=== PATIENT | female | born 1960 | race American Indian/Alaskan Native ===

== ENCOUNTER 2016-07-19 08:06 | Inpatient (IN) | payer MEDICAID, OTHER ==
[2016-07-19 08:36] LABS: ADD MANUAL DIFF? NO
[2016-07-19 08:51] LABS: ALKALINE PHOSPHATASE 147 U/L (38-133); ALT/SGPT 139 U/L (7-56); AST/SGOT 386 U/L (15-39); BILIRUBIN,TOTAL 1.2 mg/dL (0.2-1.3); BLOOD UREA NITROGEN 13 mg/dL (7-21); CALCIUM 9.4 mg/dL (8.4-10.5); CARBON DIOXIDE 29 mmol/L (21-33); CHLORIDE 99 mmol/L (98-107); GFR AFRICAN-AMERICAN > 60; GLUCOSE,RANDOM 101 mg/dL (70-110); MAGNESIUM 1.9 mg/dL (1.7-2.2); POTASSIUM 3.4 mmol/L (3.6-5.0); SODIUM 134 mmol/L (132-148); TOTAL PROTEIN 7.3 g/dL (5.8-8.3)
[2016-07-19 08:52] LABS: INR 0.97 (0.93-1.08); PARTIAL THROMBOPLASTIN TIME 28.1 Seconds (23.7-30.8)
[2016-07-19 08:56] LABS: BASO # 0.01 K/mm3 (0.0-2.0); BASO % 0.1 % (0.0-3.0); EOS % 0.2 % (1.5-5.0); GRAN # 7.71 (1.4-6.5); GRAN % 67.9 % (50.0-68.0); HEMATOCRIT 28.9 % (36.0-48.0); LYMPH # 2.6 (1.2-3.4); LYMPH % 22.7 % (22.0-35.0); MEAN CELL VOLUME 69.3 fL (80.0-105.0); MEAN CORPUSCULAR HEMOGLOBIN 22.3 pg (25.0-35.0); MEAN CORPUSCULAR HGB CONC 32.2 g/dl (31.0-37.0); MEAN PLATELET VOLUME 9.4 fl (7.0-11.0); MONO % 9.1 % (1.0-6.0); PLATELET COUNT 276 10^3/uL (120.0-450.0); RED CELL DISTRIBUTION WIDTH 18.2 % (11.5-14.5); WHITE BLOOD COUNT 11.4 10^3/ul (4.5-11.0)
--- NOTE | 2016-07-19 09:28 | ED PDOC ---
Arrival/HPI - General Chief Complaint: Chest Pain Time Seen by Provider: 07/19/16 08:17 Historian: Patient, Spouse, EMS - Critical Care Critical Care Minutes: 30 minutes - History of Present Illness Narrative History of Present Illness (Text): 07/19/16 08:07 Penelope Beltran is a 55 year old female who presents to the emergency department with a reported STEMI. Patient yesterday at 2AM [place] the cruise ship began to complain of chest pain and diarrhea. EKG reportedly showed a STEMI. Patient was treated medically and was given Aspirin, Plavix, Lovenox, Morphine and arrived to the ED with NTG drip. Patient in the ED is now pain free and denies any chest pain. PMD: None Time/Duration: Other (2AM Wednesday) Symptom Onset: Sudden Symptom Course: Unchanged Activities at Onset: Light Context: Other (Cruise) Past Medical History - Provider Review Nursing Documentation Reviewed: Yes - Travel History If Yes, travel location?: [place] - Reproductive Menopause: Yes - Cardiac Hx Cardiac Disorders: Yes Hx Hypertension: Yes - Pulmonary Hx Respiratory Disorders: No - Neurological Hx Neurological Disorder: No - HEENT Hx HEENT Disorder: No - Renal Hx Renal Disorder: No - Endocrine/Metabolic Hx Endocrine Disorders: No - Hematological/Oncological Hx Blood Disorders: No - Integumentary Hx Dermatological Disorder: No - Musculoskeletal/Rheumatological Hx Musculoskeletal Disorders: Yes Hx Arthritis: Yes Hx Back Pain: Yes - Psychiatric Hx Substance Use: No - Surgical History Hx Cholecystectomy: Yes Other/Comment: carpal tunnel - Anesthesia Hx Anesthesia: Yes Hx Anesthesia Reactions: No Hx Malignant Hyperthermia: No Family/Social History - Physician Review Nursing Documentation Reviewed: Yes Family/Social History: No Known Family HX Smoking Status: Never Smoked Hx Alcohol Use: Yes Frequency of alcohol use: Socially Hx Substance Use: No Allergies/Home Meds Allergies/Adverse Reactions: Allergies amoxicillin Allergy (Verified 07/19/16 08:18) RASH atorvastatin [From Lipitor] Allergy (Verified 07/19/16 08:18) RASH shellfish derived Allergy (Verified 07/19/16 08:18) ANGIOEDEMA simvastatin [From Zocor] Allergy (Verified 07/19/16 08:18) RASH sulfamethoxazole [From Bactrim] Allergy (Verified 07/19/16 08:18) RASH trimethoprim [From Bactrim] Allergy (Verified 07/19/16 08:18) RASH Home Medications: Home Meds Medication Instructions Recorded Confirmed Aspirin [Lo-Dose Aspirin EC] 81 mg PO DAILY 07/19/16 07/19/16 Enoxaparin [Lovenox] 100 mg SQ DAILY 07/19/16 07/19/16 Metoprolol Tartrate [Lopressor] 50 mg PO DAILY 07/19/16 07/19/16 Pantoprazole [Protonix Inj] 40 mg IV DAILY 07/19/16 07/19/16 Simvastatin 40 mg PO DIN 07/19/16 07/19/16 Review of Systems - Physician Review All systems were reviewed & negative as marked: Yes - Review of Systems Constitutional: Normal. absent: Fevers Eyes: Normal ENT: Normal Respiratory: Normal. absent: SOB, Cough Cardiovascular: Chest Pain Gastrointestinal: Diarrhea. absent: Abdominal Pain, Nausea, Vomiting Genitourinary Female: Normal. absent: Dysuria, Frequency, Hematuria Musculoskeletal: Normal. absent: Back Pain, Neck Pain Skin: Normal Neurological: Normal. absent: Headache, Dizziness Endocrine: Normal Hemo/Lymphatic: Normal Psychiatric: Normal Physical Exam Vital Signs Reviewed: Yes Vital Signs Temp Pulse Resp BP Pulse Ox 07/19/16 10:09 99.9 F H 69 15 113/73 97 07/19/16 08:36 70 16 124/72 98 Temperature: Afebrile Blood Pressure: Normal Pulse: Regular Respiratory Rate: Normal Appearance: Positive for: Well-Appearing, Non-Toxic, Comfortable Pain Distress: None Mental Status: Positive for: Alert and Oriented X 3 - Systems Exam Head: Present: Atraumatic, Normocephalic Pupils: Present: PERRL Extroacular Muscles: Present: EOMI Conjunctiva: Present: Normal Mouth: Present: Moist Mucous Membranes Neck: Present: Normal Range of Motion Respiratory/Chest: Present: Clear to Auscultation, Good Air Exchange. No: Respiratory Distress, Accessory Muscle Use Cardiovascular: Present: Regular Rate and Rhythm, Normal S1, S2. No: Murmurs Abdomen: Present: Normal Bowel Sounds. No: Tenderness, Distention, Peritoneal Signs Back: Present: Normal Inspection Upper Extremity: Present: Normal Inspection. No: Cyanosis, Edema Lower Extremity: Present: Normal Inspection. No: Edema Neurological: Present: GCS=15, CN II-XII Intact, Speech Normal Skin: Present: Warm, Dry, Normal Color. No: Rashes Psychiatric: Present: Alert, Oriented x 3, Normal Insight, Normal Concentration Medical Decision Making ED Course and Treatment: 07/19/16 08:07 Impression: 55 year old female with reported STEMI. Patient complained of chest pain and diarrhea yesterday. Differential Diagnosis include but are not limited to: STEMI Plan: -- Chest X-ray -- EKG -- Labs, Urinalysis, cardiac enzymes -- Reassess and disposition Progress Notes: EKG taken on the Cruise @ 2:20: Ordered, reviewed, and independently interpreted the EKG. Rate : 86 BPM Rhythm : NSR Interpretation : ST elevations in II, III aVF, reciprocal ST depression in I aVL V1 & V2. EKG in the ED: Ordered, reviewed, and independently interpreted the EKG. Rate : 71 BPM Rhythm : NSR Interpretation : LAD, mild ST elevations noted in leads 3 Comparison : Compared to EKG taken on the cruise 07/19/16 08:[address] Brewer. States he will CATH the patient unless there are any acute changes. 07/19/16 09:26 Troponin 38. Will call Dr. Brewer to notify him of this. 07/19/16 09:[address] Chandra, the production pattern maker, who states he will come down and see the patient in the emergency department. 07/19/16 09:37 Case discussed with Bobbi, who states he will come down and see the patient in the emergency department. 07/19/16 09:38 Dr. Grider notified of Troponin levels of 38. States that he will still CATH patient tomorrow. Re-evaluation Time: 10:20 Reassessment Condition: Re-examined - Critical Care Critical Care Minutes: 30 minutes - Lab Interpretations Lab Results: 07/19/16 08:36 07/19/16 08:36 Lab Results 07/19/16 08:36: Sodium 134, Potassium 3.4 L, Chloride 99, Carbon Dioxide 29, Anion Gap 9 L, BUN 13, Creatinine 0.8, Est GFR ( Amer) > 60, Est GFR (Non -Af Amer) > 60, Random Glucose 101, Calcium 9.4, Magnesium 1.9, Total Bilirubin 1.2, AST 386 H, ALT 139 H, Alkaline Phosphatase 147 H, Lactate Dehydrogenase 1891 H, Total Creatine Kinase 2439 H, CK-MB (CK-2) 74.2 H, CK-MB (CK-2) % 3.0, Troponin I 38.20 H*, NT-Pro-B Natriuret Pep 1080 H, Total Protein 7.3, Albumin 3.7, Globulin 3.6, Albumin/Globulin Ratio 1.0 L 07/19/16 08:36: PT 10.5, INR 0.97, APTT 28.1 07/19/16 08:36: WBC 11.4 H, RBC 4.17, Hgb 9.3 L, Hct 28.9 L, MCV 69.3 L, MCH 22.3 L, MCHC 32.2, RDW 18.2 H, Plt Count 276, MPV 9.4, Gran % 67.9, Lymph % ( Auto) 22.7, [place] % (Auto) 9.1 H, Eos % (Auto) 0.2 L, Baso % (Auto) 0.1, Gran # 7.71 H, Lymph # 2.6, [place] # 1.0 H, Eos # 0.0, Baso # 0.01 I have reviewed the lab results: Yes - RAD Interpretation Radiology Orders: 07/19/16 08:19 CHEST PORTABLE [RAD] Stat Chief Of Staff: Radiologist - Medication Orders Current Medication Orders: Aspirin (Ecotrin) 81 mg PO DAILY [facility] Heparin Sodium/Sodium Chloride (Heparin 54840 Units/250ml 1/2 Normal Saline) 25 ,000 units in 250 mls @ 12.737 mls/hr IV .[id number] ANDREY; 12 UNITS/KG/HR PRN Reason: Protocol Last Admin: 07/19/16 12:13 Dose: 12 units/kg/hr, 12.737 mls/hr Nitroglycerin/Dextrose (Nitroglycerin 50 Mg/250 Ml D5w) 50 mg in 250 mls @ 1.5 mls/hr IV .Q24H PRN; Protocol; 5 MCG/MIN PRN Reason: Systolic Blood Pressure Metoprolol Tartrate (Lopressor) 50 mg PO DAILY [facility] Pantoprazole Sodium (Protonix Inj) 40 mg IV DAILY [facility] Discontinued Medications Heparin Sodium (Porcine) (Heparin) 7,400 units 70 units/kg (7400 units) IV ONCE ONE PRN Reason: Protocol Stop: 07/19/16 12:01 Last Admin: 07/19/16 12:19 Dose: 7,400 units Nitroglycerin/Dextrose (Nitroglycerin 50 Mg/250 Ml D5w) 50 mg in 250 mls @ 1.5 mls/hr IV .Q24H PRN; Protocol; 5 MCG/MIN PRN Reason: Systolic Blood Pressure Last Admin: 07/19/16 10:27 Dose: 1.5 mls/hr Potassium Chloride (Potassium Chloride 10 Meq/100 Ml) 10 meq in 100 mls @ 100 mls/hr IVPB ONCE ONE Stop: 07/19/16 12:54 Last Admin: 07/19/16 13:25 Dose: 100 mls/hr - Scribe Statement The provider has reviewed the documentation as recorded by the Angela Ndiaye Provider Attestation: All medical record entries made by the Angela were at my direction and personally dictated by me. I have reviewed the chart and agree that the record accurately reflects my personal performance of the history, physical exam, medical decision making, and the department course for this patient. I have also personally directed, reviewed, and agree with the discharge instructions and disposition. Disposition/Present on Arrival - Present on Arrival Any Indicators Present on Arrival: No History of DVT/PE: No History of Uncontrolled Diabetes: No Urinary Catheter: No History of Decub. Ulcer: No History Surgical Site Infection Following: None - Disposition Have Diagnosis and Disposition been Completed?: Yes Diagnosis: STEMI (ST elevation myocardial infarction) Disposition: HOSPITALIZED Disposition Time: 10:20 Condition: CRITICAL
[2016-07-19] MEDS ORDERED: Nitroglycerin 50mg in D5W 50 MG/250 ML BOTTLE IV PRN ×2 (10:08→15:19)
--- NOTE | 2016-07-19 10:52 | RAD ---
HISTORY: chest pain COMPARISON: No prior. FINDINGS: LUNGS: No active pulmonary disease. PLEURA: No significant pleural effusion identified, no pneumothorax apparent. CARDIOVASCULAR: Normal. OSSEOUS STRUCTURES: No significant abnormalities. VISUALIZED UPPER ABDOMEN: Normal. OTHER FINDINGS: None. IMPRESSION: No active disease.
[2016-07-19] MEDS ORDERED: Heparin25000 units/250ml 1/2NS 25,000 UNITS/250 ML BAG IV SCH ×2 (11:30→12:00)
[2016-07-19 11:39] LABS: PH,URINE 7.5 (4.7-8.0); URINE APPEARANCE CLEAR (CLEAR); URINE BILIRUBIN NEGATIVE (NEGATIVE); URINE BLOOD TRACE-INTACT (NEGATIVE); URINE COLOR YELLOW (YELLOW); URINE GLUCOSE (UA) NEGATIVE (NEGATIVE); URINE KETONE NEGATIVE (NEGATIVE); URINE LEUKOCYTE ESTERASE NEGATIVE Leu/uL (NEGATIVE); URINE PROTEIN NEGATIVE mg/dL (<30 mg/dL); URINE UROBILINOGEN 0.2 E.U./dL (<1 E.U./dL)
[2016-07-19 11:56] LABS: URINE BACTERIA FEW (NEG); URINE RBC 0 - 2 /hpf (0-2); URINE WBC 0 - 2 /hpf (0-6)
[2016-07-19 13:18] VITALS: BMI 40.1
--- NOTE | 2016-07-19 14:53 | CARD ---
APPROVED REPORT EKG Measurement Heart [id number] <Conclusion> Sinus rhythm with occasional premature ventricular complexes Minimal voltage criteria for LVH, may be normal variant Inferior infarct, possibly recent Anterior infarct, age undetermined Abnormal ECG
--- NOTE | 2016-07-19 16:06 | HP ---
I saw her in the Emergency Room this morning. She came off a cruise ship. She is a 55-year-old female who was having a STEMI, an TX, on a cruise ship with severe chest pain, who was given aspirin, Plavix, Lovenox, morphine, nitroglycerin. She ended up in our ER pain free. No chest pain, but still not feeling great. She was going to [facility]. PAST MEDICAL HISTORY: She has a history of hypertension, arthritis, back pains cholecystectomy. PAST SURGICAL HISTORY: Carpal tunnel syndrome. FAMILY HISTORY: Hypertension in the family. SOCIAL HISTORY: She never smoked, socially alcohol, no substance abuse. ALLERGIES: SHE HAS ALLERGIES TO PENICILLIN, LIPITOR, ZOCOR, BACTRIM. MEDICATIONS: She takes aspirin, Lovenox, Lopressor, Protonix and she is on simvastatin from the ship. I am not sure why she was taking SIMVASTATIN, SHE IS ALLERGIC TO IT. That is what she came in on from the cruise ship. I will stop simvastatin. I discussed with the pharmacy already. REVIEW OF SYSTEMS: No changes in vision, no changes in hearing. No sore throat. No neck pain. No dizziness, no headaches, no numbness. There is chest pain and pressure, a little short of breath. There was some diarrhea, but no abdominal pain, no nausea, vomiting. No problems urinating. There was back pain that is chronic. There was chest pain from the heart that has now subsided. Skin for the most part is intact, no issues. No headache, no dizziness, no depression or anxiety. She understands what is going on. PHYSICAL EXAMINATION: VITAL SIGNS: She has a 99.9 temp, 69 pulse, respiratory rate, 133/73 blood pressure, 97% O2 sat on room air. GENERAL: Well appearing, nontoxic, comfortable at this time, pleasant, alert and oriented x 3. HEENT: Head is atraumatic, normocephalic. Extraocular muscles are intact. Pupils equally reactive to light and accommodation. Throat is moist, no erythema. NECK: Supple, no JVD. HEART: Regular rate. Normal S1, S2. LUNGS: Decreased breath sounds, but clear to auscultation bilaterally, fair inspiration. ABDOMEN: Soft, morbidly obese, nontender, positive bowel sounds. No guarding, no rebound, no CVA tenderness. EXTREMITIES: Have no edema bilaterally. She can move all 4 extremities. NEUROLOGIC: GCS is 15. Cranial nerves II-XII grossly intact. Normal speech. Alert and oriented x 3. SKIN: Warm and dry. No redness, no skin breakdown. LYMPHATIC: Thyroid midline. No palpable appreciative lymphadenopathy. She had multiple tests while she was here in the Emergency Room. She has a 134 sodium, potassium 3.4. I will replace the potassium. BUN 13, creatinine 0.8, GFR is greater than 60, sugar is 101, calcium is 9.4, magnesium 1.9, total bili is 1.2, her AST is 386, ALT is 139, alkaline phosphatase is 147. Lactate dehydrogenase is 1891. Total creatine kinase is 2439. CK-MB, CK 2 is 74.2. Troponin is 38.2. BNP is 1080. Total protein 7.2, albumin is 3.7. I will call in GI for the elevated liver enzymes and cardiology for the elevated troponins. INR is 0.97. White count 7.4. We will keep an eye on that. She might need antibiotics if it goes higher. I will check it tomorrow. Hemoglobin is 9.3, a little bit anemic, hematocrit 28.9, platelets are 276. She is here from the cruise ship in our Emergency Room. She had a chest x-ray, showed no acute disease. I called in cardiology. She might need to have a cardiac catheterization. She will have GI for the elevated liver enzymes. I will follow her numbers, see how she does and she is acutely ill and going to the intensive care unit. She understands everything we are going to do. Cameron Martines DO cc: [id number] TT: 07/19/2016 16:05:26 en MTDD
[2016-07-19] MEDS ORDERED: Non Formulary Medication (Simvastatin [Simvastatin] 40 MG) PO SCH (17:00)
[2016-07-19 17:13] LABS: ALKALINE PHOSPHATASE 156 U/L (38-133); ALT/SGPT 140 U/L (7-56); AST/SGOT 331 U/L (15-39); BILIRUBIN,TOTAL 1.3 mg/dL (0.2-1.3); BLOOD UREA NITROGEN 13 mg/dL (7-21); CALCIUM 9.9 mg/dL (8.4-10.5); CARBON DIOXIDE 31 mmol/L (21-33); CHLORIDE 100 mmol/L (98-107); GFR AFRICAN-AMERICAN > 60; GLUCOSE,RANDOM 93 mg/dL (70-110); POTASSIUM 3.4 mmol/L (3.6-5.0); SODIUM 138 mmol/L (132-148); TOTAL PROTEIN 7.8 g/dL (5.8-8.3)
--- NOTE | 2016-07-19 18:11 | CON ---
DATE: 07/19/2016 REQUESTING PHYSICIAN: Dr. Martines. CHIEF COMPLAINT: The patient presents with chest pain/STEMI. HISTORY OF PRESENT ILLNESS: The patient is a 55-year-old obese -Romanian female with a histor y of hypertension and hyperlipidemia that was on a cruise ship and approximately 2 days ago developed crushing chest pain that radiated to her left shoulder. The patient presented to the [facility] and she was started on aspirin and a nitro drip as well as Plavix, Lovenox and morphine. She presented t o the ER and stated that her chest pain was pretty much resolved with the IV medication and that init ially she did have some diarrhea and she had episodes of heavy sweating, but that has since resolved. No fever, chills. No present nausea, vomiting. No present diarrhea or abdominal pain. No cough o r congestion and no shortness of breath. PAST MEDICAL HISTORY: As above. ALLERGIES: AMOXICILLIN, LIPITOR, SHELLFISH, ZOCOR, BACTRIM. MEDICATIONS: Can be evaluated as per the nurse's intake form. SOCIAL HISTORY: She stopped smoking about 20 years ago. No EtOH abuse. No drug abuse. FAMILY HISTORY: Noncontributory. REVIEW OF SYSTEMS: CONSTITUTIONAL: All negative. HEENT: All negative. RESPIRATORY: All negative. CARDIOVASCULAR: The patient presented with chest pain. GASTROINTESTINAL: She had an episode of diarrhea. GENITOURINARY: All negative. MUSCULOSKELETAL: All negative. NEUROPSYCHIATRIC: All negative. INTEGRITY: All negative. ENDOCRINE: All negative. HEMATOLOGIC: All negative. IMMUNOLOGIC: All negative. PHYSICAL EXAMINATION: VITAL SIGNS: Note that the patient is afebrile. Pulse is 75, respirations are 16 and BP is 124/72. O2 saturation on room air is 98%. HEAD: Atraumatic, normocephalic. EYES: Reactive to light. EARS, NOSE AND THROAT: Seem to be within normal limits. NECK: Supple, no JVD, no thyroid enlargement, no lymph nodes. HEART: Has a regular rate and rhythm. Normal S1, S2. LUNGS: Reveal good breath sounds bilaterally. ABDOMEN: Soft, nontender, normal bowel sounds, but mildly obese. GENITALIA AND RECTAL: Deferred. MUSCULOSKELETAL: No joint deformities. EXTREMITIES: Reveal no edema. NEUROLOGIC: She seemed to be grossly intact. IMAGING: As far as her chest x-ray, it reveals no active disease. LABORATORY DATA: Shows a white count of 11.4, hemoglobin of 9.3, hematocrit 28.9 and her platelets a re 276. The patient's glucose is 101. Sodium is 134, potassium 3.4, chloride 99, CO2 of 29 with a B UN of 13, creatinine of 0.8. The patient's BNP is 1080, troponin is 38.2 and her LDH is 1891, as wel l as total creatinine kinase is 2439. CK-MB fraction is elevated at 74.2. IMPRESSION: This patient has a ST-segment myocardial infarction with significant increased troponin. She has an increased BNP so there may be a component of congestive failure as well, even though grace st x-ray does not show congestion. The patient has anemia, obesity, hypertension and hyperlipidemia. She did present with chest pain. PLAN: We will continue with O2 via nasal cannula. She has been admitted to the intensive care unit for close observation. The patient medications at this time are a nitro drip, she will be continued on aspirin and Plavix. Cardiology has been consulted and she is scheduled for cardiac cath in the [facility]. We will continue to monitor closely and treat aggressively along with the other consultants a nd the primary care doctor. Lucas Matamoros MD cc: [id number] TT: 07/19/2016 18:11:06 Confirmation # [id number] Dictation # [id number]
--- NOTE | 2016-07-19 22:40 | CP.CCUPN ---
CCU Subjective - Physician Review Subjective (Free Text): 07/19/16 22:36 Patient is a 55 yo F who [place] cruise [place] with 2 day history of crushing chest pain. Found to have ST elevations on EKG performed on ship with elevated trop level (level unknown, not provided in paperwork from ship). Sent to [facility] ED with Aspirin, Plavix, Lovenox, Morphine and NTG drip. On arrival to ED, 12 lead EKG was negative for STEMI, but EKG from ship provided by shows clear ST elevations, and Trop in the ED was 38. Cardio notified, started heparin drip, continued nitro drip, and states planning for Cath tomorrow. Patient was then admitted to the ICU for close monitoring pending Cardiac cath tomorrow AM. CCU Objective - Vital Signs / Intake & Output Vital Signs (Last 4 hours): Vital Signs Temp 07/19/16 20:00 98.9 F Intake and Output (Last 8hrs): Intake & Output 07/19/16 07/19/16 07/19/16 06:59 14:59 22:59 Intake Total 818 Output Total 2050 Balance -1232 Weight 106.141 kg Intake: IV 258 Left Antecubital 36 Right Antecubital 172 Oral 560 Output: Urine 1800 Urine, Voided 1800 Urine/Stool Mix 250 Other: Voiding Method Bedpan # Voids Urine, Voided 4 # Bowel Movements 1 - Physical Exam Head: Positive for: Atraumatic, Normocephalic Pupils: Positive for: PERRL Extroacular Muscles: Positive for: EOMI Conjunctiva: Positive for: Normal Mouth: Positive for: Moist Mucous Membranes Neck: Positive for: Normal Range of Motion Respiratory/Chest: Positive for: Clear to Auscultation, Good Air Exchange. Negative for: Respiratory Distress, Accessory Muscle Use Cardiovascular: Positive for: Regular Rate and Rhythm, Normal S1, S2. Negative for: Murmurs Abdomen: Positive for: Normal Bowel Sounds. Negative for: Tenderness, Distention, Peritoneal Signs Back: Positive for: Normal Inspection Upper Extremity: Positive for: Normal Inspection. Negative for: Cyanosis, Edema Lower Extremity: Positive for: Normal Inspection. Negative for: Edema Neurological: Positive for: GCS=15, CN II-XII Intact, Speech Normal Skin: Positive for: Warm, Dry, Normal Color. Negative for: Rashes Psychiatric: Positive for: Alert, Oriented x 3, Normal Insight, Normal Concentration - Medications Active Medications: Active Medications Generic Name Dose Route Start Last Admin Trade Name Freq PRN Reason Stop Dose Admin Aspirin 81 mg 07/20/16 10:00 Ecotrin PO DAILY [facility] Heparin Sodium/Sodium Chloride 25,000 units in 250 mls @ 12.737 mls/hr 12:00 07/19/16 17:48 Heparin 17973 Units/250ml 1/2 Normal Saline IV 10 units/kg/hr .[id number] ANDREY 10.614 mls/hr Protocol Titration 12 UNITS/KG/HR Nitroglycerin/Dextrose 50 mg in 250 mls @ 1.5 mls/hr 07/19/16 15:19 07/19/16 16:01 Nitroglycerin 50 Mg/250 Ml D5w IV 20 mcg/min .Q24H PRN 6 mls/hr Systolic Blood Pressure Administration Protocol 5 MCG/MIN Metoprolol Tartrate 50 mg 07/20/16 10:00 Lopressor PO DAILY [facility] Pantoprazole Sodium 40 mg 07/20/16 10:00 Protonix Inj IV DAILY [facility] - Patient Studies Lab Studies: Lab Studies 07/19/16 07/19/16 07/19/16 Range/Units 16:50 16:50 11:36 APTT 86.0 H* (23.7-30.8) Seconds Sodium 138 (132-148) mmol/L Potassium 3.4 L (3.6-5.0) mmol/L Chloride 100 (98-107) mmol/L Carbon Dioxide 31 (21-33) mmol/L Anion Gap 10 (10-20) BUN 13 (7-21) mg/dL Creatinine 0.9 (0.5-1.4) mg/dL Est GFR ( Amer) > 60 Est GFR (Non-Af Amer) > 60 Random Glucose 93 (70-110) mg/dL Calcium 9.9 (8.4-10.5) mg/dL Total Bilirubin 1.3 (0.2-1.3) mg/dL AST 331 H (15-39) U/L ALT 140 H (7-56) U/L Alkaline Phosphatase 156 H (38-133) U/L Troponin I 28.70 H* D ng/mL Total Protein 7.8 (5.8-8.3) g/dL Albumin 3.9 (3.0-4.8) g/dL Globulin 3.9 gm/dL Albumin/Globulin Ratio 1.0 L (1.1-1.8) TSH 3rd Generation (0.46-4.68) mIU/mL Urine Color Yellow (YELLOW) Urine Appearance Clear (CLEAR) Urine pH 7.5 (4.7-8.0) Ur Specific [place] 1.015 (1.005-1.035) Urine Protein Negative (<30 mg/dL) mg/dL Urine Glucose (UA) Negative (NEGATIVE) mg/dL Urine Ketones Negative (NEGATIVE) mg/dL Urine Blood Trace-intact H (NEGATIVE) Urine Nitrate Negative (NEGATIVE) Urine Bilirubin Negative (NEGATIVE) Urine Urobilinogen 0.2 (<1 E.U./dL) E.U./dL Ur Leukocyte Esterase Negative (NEGATIVE) Edvin/uL Urine RBC 0 - 2 (0-2) /hpf Urine WBC 0 - 2 (0-6) /hpf Ur Epithelial Cells 1 - 3 (0-5) /hpf Urine Bacteria Few (NEG) 07/19/16 Range/Units 11:15 APTT (23.7-30.8) Seconds Sodium (132-148) mmol/L Potassium (3.6-5.0) mmol/L Chloride (98-107) mmol/L Carbon Dioxide (21-33) mmol/L Anion Gap (10-20) BUN (7-21) mg/dL Creatinine (0.5-1.4) mg/dL Est GFR ( Amer) Est GFR (Non-Af Amer) Random Glucose (70-110) mg/dL Calcium (8.4-10.5) mg/dL Total Bilirubin (0.2-1.3) mg/dL AST (15-39) U/L ALT (7-56) U/L Alkaline Phosphatase (38-133) U/L Troponin I ng/mL Total Protein (5.8-8.3) g/dL Albumin (3.0-4.8) g/dL Globulin gm/dL Albumin/Globulin Ratio (1.1-1.8) TSH 3rd Generation 2.11 (0.46-4.68) mIU/mL Urine Color (YELLOW) Urine Appearance (CLEAR) Urine pH (4.7-8.0) Ur Specific [place] (1.005-1.035) Urine Protein (<30 mg/dL) mg/dL Urine Glucose (UA) (NEGATIVE) mg/dL Urine Ketones (NEGATIVE) mg/dL Urine Blood (NEGATIVE) Urine Nitrate (NEGATIVE) Urine Bilirubin (NEGATIVE) Urine Urobilinogen (<1 E.U./dL) E.U./dL Ur Leukocyte Esterase (NEGATIVE) Edvin/uL Urine RBC (0-2) /hpf Urine WBC (0-6) /hpf Ur Epithelial Cells (0-5) /hpf Urine Bacteria (NEG) Laboratory Results - last 24 hr 07/19/16 07/19/16 07/19/16 11:15 11:36 16:50 APTT Sodium 138 Potassium 3.4 L Chloride 100 Carbon Dioxide 31 Anion Gap 10 BUN 13 Creatinine 0.9 Est GFR ( Amer) > 60 Est GFR (Non-Af Amer) > 60 Random Glucose 93 Calcium 9.9 Total Bilirubin 1.3 AST 331 H ALT 140 H Alkaline Phosphatase 156 H Troponin I 28.70 H* D Total Protein 7.8 Albumin 3.9 Globulin 3.9 Albumin/Globulin Ratio 1.0 L TSH 3rd Generation 2.11 Urine Color Yellow Urine Appearance Clear Urine pH 7.5 Ur Specific [place] 1.015 Urine Protein Negative Urine Glucose (UA) Negative Urine Ketones Negative Urine Blood Trace-intact H Urine Nitrate Negative Urine Bilirubin Negative Urine Urobilinogen 0.2 Ur Leukocyte Esterase Negative Urine RBC 0 - 2 Urine WBC 0 - 2 Ur Epithelial Cells 1 - 3 Urine Bacteria Few 07/19/16 16:50 APTT 86.0 H* Sodium Potassium Chloride Carbon Dioxide Anion Gap BUN Creatinine Est GFR ( Amer) Est GFR (Non-Af Amer) Random Glucose Calcium Total Bilirubin AST ALT Alkaline Phosphatase Troponin I Total Protein Albumin Globulin Albumin/Globulin Ratio TSH 3rd Generation Urine Color Urine Appearance Urine pH Ur Specific [place] Urine Protein Urine Glucose (UA) Urine Ketones Urine Blood Urine Nitrate Urine Bilirubin Urine Urobilinogen Ur Leukocyte Esterase Urine RBC Urine WBC Ur Epithelial Cells Urine Bacteria EKG/Cardiology Studies: Cardiology / EKG Studies 07/20/16 06:00 ELECTROCARDIOGRAM DAILY Comment: Reason For Exam: Elevated trop, possible STEMI, f/u Critical Care Progress Note - Nutrition Nutrition: Nutrition Category Date Time Status Heart Healthy Diet [DIET] Diets 07/19/16 Lunch Ordered Assessment/Plan - Assessment and Plan (Free Text) Assessment: This is a 55 yo AA F who presents from cruise ship with 2 day history of crushing chest pain, and was found to have ST elevations and elevated trops consistent with STEMI. Pending Cardiac cath in the AM. Admitted to the ICU for close monitoring prior to cath. Plan: Neuro: -awake and alert, follows commands appropriately -temp of 100.9 after admission to ICU, acetaminophen 650mg PO x1 given -maintain normothermia, but given setting of elevated LFTs, use tylenol with caution Pulm: -satting well on room air, no indication for supplemental O2 at this time -maintain SaO2 > 90% -aspiration precautions, head of bed to 30 degrees Cardio: -ST elevations on EKG from cruise ship, 12 lead EKG in ED negative for ST elevations -Trop 38.2 on admission, down to 28.7 on repeat, continue to trend -Cardio (Dr. Chan) consulted, appreciate all recs; pending cardiac cath tomorrow -Heparin drip, Nitro drip -Continue home ASA and lopressor -EKG in ED notable for sinus rhythm at 71 with occasional PVCs, no ST segment elevations; repeat EKG in AM -Hemodynamically stable, no need for pressors at this time, maintain MAP > 65 GI: -heart-healthy diet, NPO after midnight for possible cath -Protonix for GI ppx -elevated LFTs, may be secondary to suspected STEMI, avoid hepatotoxic drugs where feasible -GI (Dr. Valles) consulted, appreciate all recs Renal: -Cr 0.9, continue to monitor -monitor and replete all electrolytes as needed, K remains low so will replete further with 40 mEq PO and 2x10 mEq IV -avoid nephrotoxic drugs where feasible -maintain euvolemia and euglycemia (BG 140-180) Heme: -Hgb 9.3, continue to monitor -Heparin drip covers for DVT ID: -leukocytosis of 11.4, temp 100.9 x1, afebrile since -leukocytosis 2/2 stress rxn vs infectious process -blood and urine cultures pending -f/u repeat CBC, if leukocytosis persists or worsens, can consider starting abx Dispo: ICU for monitoring, pending cardiac cath in AM FEN: Heart-healthy, NPO after midnight for cardiac cath Access: Peripheral IV Consults: Cardio, GI Ppx: Protonix for GI, Heparin drip covers for DVT
[2016-07-19] MEDS ORDERED: Potassium Chloride 40 mEq/30 ml LIQ UD PO ONE (22:49)
[2016-07-20 05:41] LABS: ADD MANUAL DIFF? NO
[2016-07-20 05:55] LABS: INR 0.99 (0.93-1.08); PARTIAL THROMBOPLASTIN TIME 54.7 Seconds (23.7-30.8)
[2016-07-20 06:21] LABS: ALKALINE PHOSPHATASE 153 U/L (38-133); ALT/SGPT 125 U/L (7-56); AST/SGOT 230 U/L (15-39); BILIRUBIN,TOTAL 1.2 mg/dL (0.2-1.3); BLOOD UREA NITROGEN 11 mg/dL (7-21); CALCIUM 9.7 mg/dL (8.4-10.5); CARBON DIOXIDE 31 mmol/L (21-33); CHLORIDE 104 mmol/L (98-107); CHOLESTEROL 211 mg/dL (130-200); GFR AFRICAN-AMERICAN > 60; GLUCOSE,RANDOM 99 mg/dL (70-110); PHOSPHOROUS 2.6 mg/dL (2.5-4.5); POTASSIUM 3.9 mmol/L (3.6-5.0); SODIUM 141 mmol/L (132-148); TOTAL PROTEIN 7.5 g/dL (5.8-8.3)
[2016-07-20 06:29] LABS: HEMATOCRIT 30.8 % (36.0-48.0); MEAN CELL VOLUME 71.1 fL (80.0-105.0); MEAN CORPUSCULAR HEMOGLOBIN 22.2 pg (25.0-35.0); MEAN CORPUSCULAR HGB CONC 31.2 g/dl (31.0-37.0); WHITE BLOOD COUNT 13.8 10^3/ul (4.5-11.0)
[2016-07-20 06:30] LABS: BASO # 0.03 K/mm3 (0.0-2.0); BASO % 0.2 % (0.0-3.0); EOS # 0.1 (0.0-0.7); EOS % 0.4 % (1.5-5.0); GRAN # 8.25 (1.4-6.5); GRAN % 59.7 % (50.0-68.0); MEAN PLATELET VOLUME 10.1 fl (7.0-11.0); MONO # 1.5 (0.1-0.6); MONO % 10.7 % (1.0-6.0); PLATELET COUNT 292 10^3/uL (120.0-450.0); RED CELL DISTRIBUTION WIDTH 19.5 % (11.5-14.5)
[2016-07-20] MEDS ORDERED: Lidocaine 2% Inj (20ml) ONE (07:13)
[2016-07-20] MEDS ORDERED: Iohexol 350mgl/ml 50 ML ONE (07:14)
[2016-07-20] MEDS ORDERED: Iohexol 350 MG/100 ML VIAL ONE (07:14)
[2016-07-20] MEDS: DiphenhydrAMINE 50 mg/ml Inj ONE (07:21)
[2016-07-20] MEDS: Famotidine 20mg/50ml 20 MG/50 ML BAG IVPB ONE (07:21)
[2016-07-20] MEDS: Midazolam 2 MG/2 ML VIAL ONE (07:43)
[2016-07-20] MEDS: Nitroglycerin 50mg in D5W 50 MG/250 ML BOTTLE IV ONE (08:01)
[2016-07-20] MEDS ORDERED: Sodium Chloride 0.9% 1,000 ML IV SCH (08:30)
--- NOTE | 2016-07-20 09:09 | PN ---
DATE: 07/20/2016 I saw her in the vascular suite, getting ready for her catheterization with cardiology this morning. Mild chest discomfort - not as bad as when she came in, smiling, happy. No acute distress at this t diego. She understands the procedure, and knows she will be lying flat for 6 hours afterwards, and we will see if she does need a stent or not. She understands all this. She is on aspirin, Lopressor, Plavix, Protonix, IV fluids, and Zofran. PHYSICAL EXAMINATION: VITAL SIGNS: Temp 98.2, 81 pulse, 112/68 blood pressure. LABORATORY DATA: White count 13.8, 9.6 hemoglobin, 30.8 hematocrit with 292 platelets. The white co unt did go up. She has a 0.99 INR. Sodium 141, potassium 3.9. BUN is 11, creatinine 1. GFR is gre ater than 60. Sugar is 99. Calcium is 9.7. Total bili is 2.6. Magnesium is 2. Total bili is 1.3. AST is 230 - coming down. ALT is 125 - coming down. Alk phos 153 - coming down. Her troponin was 21.6 - coming down. It was as high as 38.2. BNP went up to 1480. We will see if cardiology wants to give her some Lasix and diuresed her. She is currently not on any Lasix right now. We might have to give her a dose. We will see what they say after the catheteriza tion. We will continue with aggressive treatment and care. She is being seen by cardiology and GI, and I am going to call in infectious disease for the elevated white count. It could be stress related, but that went up, as opposed to coming down. I am not yvette e. I do not know the source for infection. I want to get their opinion, and we will check her labs tomorrow. Hopefully, she will do very well, and we will see how she does after the cath. Cameron Martines DO cc: [id number] TT: 07/20/2016 09:08:40 Confirmation # [id number] Dictation # [id number] jn
--- NOTE | 2016-07-20 09:17 | CP.PCM.CON ---
History of Present Illness - History of Present Illness History of Present Illness: Asked by Dr. Martines for a GI consultation on this patient. 55 year old female with history of obesity, HTN, hyperlipidemia, chronic back pain who presents to hospital with sudden onset chest pain. She was on a cruise to [facility], day 6 when she began to develop crushing chest pain, was brought to hospital and found to have acute MS. GI called for evaluation of elevated LFTs. She is currently seen resting in bed comfortably and denies abdominal pain, nausea, vomiting, diarrhea, fever/chills, weight loss, jaundice, pruritis, excessive ETOH or tylenol use, or prior liver abnormalities. She had a colonoscopy 5 years ago in [place] which was normal as per patient. Social history: non-smoker, social ETOH use Family history: sister (colon cancer diagnosed age 50) Review of Systems - Review of Systems Review of Systems: - All other comprehensive 12 point review of systems performed, negative - Cardiovascular Cardiovascular: Chest Pain - Respiratory Respiratory: absent: Cough, Dyspnea, Hemoptysis, Dyspnea on Exertion, Wheezing, Snoring, Stridor, Pain on Inspiration, Chest Congestion, Excessive Mucous Production, Change in Mucous Color, Pain with Coughing, Other - Gastrointestinal Gastrointestinal: absent: Abdominal Pain, Belching, Bloating, Change in Bowel Habits, Change in Stool Character, Coffee Ground Emesis, Constipation, Cramping , Diarrhea, Dyspepsia, Dysphagia, Early Satiety, Excessive Flatus, Fecal Incontinence, Heartburn, Hematemesis, Hematochezia, Loose Stools, Melena, Nausea , Odynophagia, Temesmus, Vomiting, Other - Musculoskeletal Musculoskeletal: Back Pain - Neurological Neurological: absent: Abnormal Gait, Abnormal Hearing, Abnormal Movements, Abnormal Speech, Behavioral Changes, Burning Sensations, Confusion, Convulsions , Disequilibrium, Dizziness, Numbness, Focal Weakness, Frequent Falls, Headaches , Lack of Coordination, Loss of Vision, Memory Loss, Paresthesias, Radicular Pain, Restless Legs, Sensory Deficit, Syncope, Tingling, Tremor, Vertigo, Weakness, Other Visual Disturbances, Other Past Patient History - Past Social History Smoking Status: Never Smoked - CARDIAC Hx Cardiac Disorders: Yes Hx Hypertension: Yes - PULMONARY Hx Respiratory Disorders: No - NEUROLOGICAL Hx Neurological Disorder: No - HEENT Hx HEENT Problems: No - RENAL Hx Chronic Kidney Disease: No - ENDOCRINE/METABOLIC Hx Endocrine Disorders: No - HEMATOLOGICAL/ONCOLOGICAL Hx Blood Disorders: No - INTEGUMENTARY Hx Dermatological Problems: No - MUSCULOSKELETAL/RHEUMATOLOGICAL Hx Musculoskeletal Disorders: Yes Hx Arthritis: Yes Hx Back Pain: Yes - PSYCHIATRIC Hx Substance Use: No - SURGICAL HISTORY Hx Cholecystectomy: Yes Other/Comment: carpal tunnel - ANESTHESIA Hx Anesthesia: Yes Hx Anesthesia Reactions: No Hx Malignant Hyperthermia: No Meds Allergies/Adverse Reactions: Allergies Allergy/AdvReac Type Severity Reaction Status Date / Time amoxicillin Allergy RASH Verified 07/19/16 08:18 atorvastatin [From Lipitor] Allergy RASH Verified 07/19/16 08:18 shellfish derived Allergy ANGIOEDEMA Verified 07/19/16 08:18 simvastatin [From Zocor] Allergy RASH Verified 07/19/16 08:18 sulfamethoxazole Allergy RASH Verified 07/19/16 08:18 [From Bactrim] trimethoprim [From Bactrim] Allergy RASH Verified 07/19/16 08:18 - Medications Medications: Current Medications Aspirin (Ecotrin) 81 mg PO DAILY [facility] Last Admin: 07/20/16 06:41 Dose: 81 mg Clopidogrel Bisulfate (Plavix) 75 mg PO DAILY [facility] Sodium Chloride (Sodium Chloride 0.9%) 1,000 mls @ 100 mls/hr IV .Q10H [facility] Stop: 07/20/16 18:29 Metoprolol Tartrate (Lopressor) 50 mg PO Q12H [facility] Ondansetron HCl (Zofran Inj) 4 mg IVP Q6H PRN PRN Reason: Nausea/Vomiting Last Admin: 07/20/16 00:58 Dose: 4 mg Pantoprazole Sodium (Protonix Inj) 40 mg IV DAILY [facility] Physical Exam - Constitutional Appears: Non-toxic, No Acute Distress - Head Exam Head Exam: NORMAL INSPECTION - Eye Exam Eye Exam: EOMI, Normal appearance - ENT Exam ENT Exam: Mucous Membranes Moist - Respiratory Exam Respiratory Exam: Clear to Auscultation Bilateral - Cardiovascular Exam Cardiovascular Exam: REGULAR RHYTHM, +S1, +S2 - GI/Abdominal Exam GI & Abdominal Exam: Normal Bowel Sounds, Soft Additional comments: obese, non-tender to palpation in four quadrants no palpable hepato/splenomegaly - Extremities Exam Extremities exam: Positive for: normal inspection Additional comments: groin dressing intact, clean/dry - Neurological Exam Neurological exam: Alert, CN II-XII Intact, Oriented x3, Reflexes Normal - Psychiatric Exam Psychiatric exam: Normal Affect, Normal Mood - Skin Skin Exam: Dry, Intact, Normal Color, Warm Results - Vital Signs Recent Vital Signs: Last Vital Signs Temp 98.2 F 07/20/16 04:00 Pulse 70 07/20/16 08:59 Resp 18 07/20/16 08:59 BP 101/63 07/20/16 08:59 Pulse Ox 98 07/20/16 08:59 - Labs Result Diagrams: 07/20/16 05:15 07/20/16 05:15 Labs: Laboratory Results - last 24 hr 07/19/16 07/19/16 07/19/16 11:15 11:36 16:50 WBC RBC Hgb Hct MCV MCH MCHC RDW Plt Count MPV Gran % Lymph % (Auto) [place] % (Auto) Eos % (Auto) Baso % (Auto) Gran # Lymph # [place] # Eos # Baso # PT INR APTT Sodium 138 Potassium 3.4 L Chloride 100 Carbon Dioxide 31 Anion Gap 10 BUN 13 Creatinine 0.9 Est GFR ( Amer) > 60 Est GFR (Non-Af Amer) > 60 Random Glucose 93 Calcium 9.9 Phosphorus Magnesium Total Bilirubin 1.3 AST 331 H ALT 140 H Alkaline Phosphatase 156 H Troponin I 28.70 H* D NT-Pro-B Natriuret Pep Total Protein 7.8 Albumin 3.9 Globulin 3.9 Albumin/Globulin Ratio 1.0 L Triglycerides Cholesterol LDL Cholesterol Direct HDL Cholesterol TSH 3rd Generation 2.11 Urine Color Yellow Urine Appearance Clear Urine pH 7.5 Ur Specific [place] 1.015 Urine Protein Negative Urine Glucose (UA) Negative Urine Ketones Negative Urine Blood Trace-intact H Urine Nitrate Negative Urine Bilirubin Negative Urine Urobilinogen 0.2 Ur Leukocyte Esterase Negative Urine RBC 0 - 2 Urine WBC 0 - 2 Ur Epithelial Cells 1 - 3 Urine Bacteria Few 07/19/16 07/19/16 07/19/16 16:50 23:20 23:20 WBC RBC Hgb Hct MCV MCH MCHC RDW Plt Count MPV Gran % Lymph % (Auto) [place] % (Auto) Eos % (Auto) Baso % (Auto) Gran # Lymph # [place] # Eos # Baso # PT INR APTT 86.0 H* 65.4 H Sodium Potassium Chloride Carbon Dioxide Anion Gap BUN Creatinine Est GFR ( Amer) Est GFR (Non-Af Amer) Random Glucose Calcium Phosphorus Magnesium Total Bilirubin AST ALT Alkaline Phosphatase Troponin I 25.10 H* NT-Pro-B Natriuret Pep Total Protein Albumin Globulin Albumin/Globulin Ratio Triglycerides Cholesterol LDL Cholesterol Direct HDL Cholesterol TSH 3rd Generation Urine Color Urine Appearance Urine pH Ur Specific [place] Urine Protein Urine Glucose (UA) Urine Ketones Urine Blood Urine Nitrate Urine Bilirubin Urine Urobilinogen Ur Leukocyte Esterase Urine RBC Urine WBC Ur Epithelial Cells Urine Bacteria 07/20/16 07/20/16 07/20/16 05:15 05:15 05:15 WBC 13.8 H D RBC 4.33 Hgb 9.6 L Hct 30.8 L MCV 71.1 L MCH 22.2 L MCHC 31.2 RDW 19.5 H Plt Count 292 MPV 10.1 Gran % 59.7 Lymph % (Auto) 29.0 [place] % (Auto) 10.7 H Eos % (Auto) 0.4 L Baso % (Auto) 0.2 Gran # 8.25 H Lymph # 4.0 H [place] # 1.5 H Eos # 0.1 Baso # 0.03 PT 10.7 INR 0.99 APTT 54.7 H Sodium 141 Potassium 3.9 Chloride 104 Carbon Dioxide 31 Anion Gap 10 BUN 11 Creatinine 1.0 Est GFR ( Amer) > 60 Est GFR (Non-Af Amer) 57 Random Glucose 99 Calcium 9.7 Phosphorus 2.6 Magnesium 2.0 Total Bilirubin 1.2 AST 230 H ALT 125 H Alkaline Phosphatase 153 H Troponin I 21.60 H* NT-Pro-B Natriuret Pep 1480 H Total Protein 7.5 Albumin 3.8 Globulin 3.7 Albumin/Globulin Ratio 1.0 L Triglycerides 165 H Cholesterol 211 H LDL Cholesterol Direct 118 HDL Cholesterol 55 TSH 3rd Generation Urine Color Urine Appearance Urine pH Ur Specific [place] Urine Protein Urine Glucose (UA) Urine Ketones Urine Blood Urine Nitrate Urine Bilirubin Urine Urobilinogen Ur Leukocyte Esterase Urine RBC Urine WBC Ur Epithelial Cells Urine Bacteria Assessment & Plan - Assessment and Plan (Free Text) Assessment: HTN Arthritis, chronic back pain Obesity Acute MS, s/p cardiac cath with QUENTIN placement Transaminitis Microcytic anemia Plan: - Diet as tolerated - LFTs trending down, continue to monitor and avoid hepatotoxic therapy - Obtain abdominal US - Obtain viral hepatitis and autoimmune panels - Follow up cardiology recommendations s/p PCI - H/H stable, continue to monitor and obtain stool occult blood - Patient would benefit from elective outpatient colonoscopy given family history of colon cancer in 1st degree relative following resolution of acute cardiac events
[2016-07-20] MEDS: Morphine 2 mg/ml ISec IVP PRN (09:39)
--- NOTE | 2016-07-20 10:07 | CON ---
DATE: 07/20/2016 REQUESTING PHYSICIAN: Dr. Martines REASON FOR CONSULTATION: Acute myocardial infarction. HISTORY OF PRESENT ILLNESS: This is a 55-year-old woman with a history of hypertension and hyperlipi demia, who was on a cruise ship when she developed severe retrosternal chest discomfort early y morning. She went to the medical facility on the ship and was found to have evidence of an inferio r wall myocardial infarction with acute ST elevations. She was started on aspirin, Lovenox, metoprol ol. She was also reportedly given Plavix. She presented to the Emergency Room yesterday morning aft er disembarking. She had no chest pain upon arrival. An EKG showed evidence of Q-waves in the infer ior leads. She did have mild discomfort overnight. She has no prior cardiac history. She does have a history of hypertension and hyperlipidemia. She does not smoke. There is no family history of pr emature heart disease. PAST MEDICAL HISTORY: Notable for the problems mentioned above. She has had prior carpal tunnel yvette christiana as well as a cholecystectomy. She has chronic arthritis and chronic obesity. CURRENT MEDICATIONS: Include aspirin, IV heparin, metoprolol 50 mg daily, IV nitroglycerin, Protonix , and Zofran p.r.n. ALLERGIES: SHE HAS HAD A PRIOR REACTION APPARENTLY IN THE PAST TO AMOXICILLIN, ATORVASTATIN, SIMVAST ATIN AND BACTRIM. SOCIAL HISTORY: She does not smoke or drink. She is a resident of [place]. FAMILY HISTORY: Both parents were hypertensive, but there is no evidence of premature heart disease. REVIEW OF SYSTEMS: A 10-point is otherwise unremarkable. PHYSICAL EXAMINATION: GENERAL: She is an overweight, middle-aged woman. VITAL SIGNS: Her blood pressure is 112/70 with pulse of 80, in sinus, respirations are 16. She is a febrile. HEENT: Normocephalic, atraumatic. NECK: Supple, no JVD noted. CHEST: Clear to auscultation and percussion. HEART: PMI displaced laterally with no pathologic murmur or gallops noted. ABDOMEN: Soft, obese, nontender, normoactive bowel sounds. EXTREMITIES: No edema. SKIN: Warm and dry. PSYCHIATRIC: Normal mood and affect. NEUROLOGIC: Alert and oriented x 3. No gross motor or sensory deficits appreciable. DIAGNOSTIC DATA: Potassium is 3.9, BUN and creatinine are 11 and 1.0. Hemoglobin and hematocrit are 9.6 and 30.8 with an MCV of 71, platelet count is 292,000. Peak troponin was 38.2, repeat this morn ing is 21.6. Electrocardiogram reveals sinus rhythm with inferior wall myocardial infarction pattern and nonspecific ST-T abnormalities. Chest x-ray reveals normal cardiac silhouette with clear lung f ields. IMPRESSION: 1. Status post subacute inferior wall myocardial infarction with some post-infarct angina. 2. History of hypertension and hyperlipidemia. 3. Other problems include microcytic anemia. RECOMMENDATIONS: Given her presentation, a cardiac catheterization has been recommended. Further pl ans will be made based upon those results. Risks and benefits of the procedure have been discussed i n detail with her and she is agreeable to proceed. Stool guaiacs will be checked. Evaluation of her microcytic anemia should be planned. Risk factor control is advised. Thank you for this consultation. I will be happy to follow along through her hospital course. Jesu Chan MD cc: [id number] TT: 07/20/2016 10:06:55 Confirmation # [id number] Dictation # [id number] en
--- NOTE | 2016-07-20 10:16 | CARDCATH ---
PROCEDURE DATE: 07/20/2016 PROCEDURES: 1. Selective left and right coronary angiography. 2. Left ventriculography. 3. PCI of RCA with drug-eluting stents. 4. Right femoral arteriography. 5. Angio-Seal deployment. HISTORY OF PRESENT ILLNESS: This is a 55-year-old woman with a history of hypertension and hyperlipidemia, who suffered [place] myocardial [place] on [place] cruise [place] 48 [place] ago. She has had some post-infarct angina and catheterization was recommended. Her peak troponin was 35. INDICATION: Subacute myocardial infarction, post-infarct angina. FINDINGS: HEMODYNAMICS: The aortic pressure was 100/70 with a left ventricular pressure of 100/20. CORONARY ANATOMY: 1. The left main stem had a 20% ostial tapering. 2. Left anterior descending artery and its branches had mild diffuse disease and LAD was mildly calcified. 3. Left circumflex artery was of moderate size with no significant disease. 4. The right coronary artery was occluded proximally. The vessel appeared to be moderately calcified as well. Faint collaterals are seen from the left coronary system to the distal RCA. LEFT VENTRICULOGRAPHY: A hand injection was performed in the left ventricle revealing moderate inferior hypokinesis with an overall ejection fraction of 40% . There was no aortic valve gradient noted on catheter pullback. Mitral regurgitation was not assessed. CORONARY INTERVENTION: Given the above findings, attempted PCI of the RCA was then performed. Intravenous heparin 5000 units was administered and the ACT was greater than 220 seconds during the procedure. The lesion in the RCA was successfully crossed with the use of a [place] wire and initial inflations were performed with a 2.5 mm x 12 mm balloon. After recanalization of the vessel, there was evidence of multiple severe lesions throughout the proximal, mid and distal LAD. The distal lesion appeared to be of 80% severity, the mid portion had 90% lesions and the proximal lesion had been 100%. Given these findings, multiple inflations with the 2.5 mm balloon was performed in the distal, mid and proximal segments of the vessel. Following this, a 2.75 mm x 23 mm Xience drug-eluting stent was advanced into the distal vessel and inflated to 12 atmospheres. There was 0% residual stenosis at the site. Following this, a 3.0 mm x 33 mm Xience stent was deployed in the mid portion of the vessel. This was inflated to 12 atmospheres. Subsequently, a 3.0 mm x 28 mm Xience drug -eluting stent was advanced into the more proximal portion of the vessel and positioned with overlap of the mid stent. This was inflated to 12 atmospheres. Following this, the stent balloon was removed and a 3.25 mm x 12 mm NC balloon was advanced into the mid stent and multiple inflations performed throughout the mid and proximal stent including the segment of overlap. There was 0% residual stenosis throughout the vessel at the time of the procedure and CIRILO grade flow was increased from 0 to III following intervention. Intracoronary nitroglycerin had been administered. RIGHT FEMORAL ARTERIOGRAPHY: Right femoral arteriogram revealed no evidence of significant disease and appropriate left arterial puncture. The puncture site was then closed with deployment of an Angio-Seal device. CONCLUSION: 1. Subacute myocardial infarction involving inferior wall due to proximal right coronary artery occlusion, multiple severe lesions throughout the right coronary artery. 2. Mild proximal left main disease. 3. Mild to moderately reduced left ventricular systolic function with inferior hypokinesis. 4. Successful percutaneous coronary intervention of right coronary artery with drug-eluting stents as described above. RECOMMENDATIONS: Aspirin and Plavix therapy will be continued for at least 1 year. Beta sunny therapy has been initiated as well. An JULEE inhibitor will be added as blood pressure allows. She apparently has had REACTIONS TO LIPITOR AND ZOCOR in the past. However, a trial of an alternative statin can be considered with either Crestor or Pravachol. Aggressive risk factor control should be initiated. The need for followup with a operations examiner upon return to [place] was discussed with her. She was noted to have mild microcytic anemia and stool guaiacs are pending. Workup for this should be initiated upon her return home. Jesu Chan MD cc: [id number] TT: 07/20/2016 10:15:27 en MTDD
--- NOTE | 2016-07-20 10:55 | US ---
HISTORY: elevated LFTs COMPARISON: None. TECHNIQUE: Sonographic evaluation of the abdomen. FINDINGS: LIVER: Measures 15.6 cm. Coarse heterogeneous mildly increased echogenicity of the liver parenchyma. No mass. No intrahepatic bile duct dilatation. GALLBLADDER: The gallbladder was removed. COMMON BILE DUCT: Measures 5.7 mm. No stones. No dilatation. PANCREAS: Unremarkable as visualized. No mass. No ductal dilatation. RIGHT KIDNEY: Measures 11.2 x 4.7 x 4.1cm. Normal echogenicity. No calculus, mass, or hydronephrosis. LEFT KIDNEY: Measures 11.1 x 5.6 x 5.3cm. Normal echogenicity. No calculus, mass, or hydronephrosis. SPLEEN: Normal in size and contour. No mass. AORTA: No aneurysmal dilatation. IVC: Unremarkable. OTHER FINDINGS: None. IMPRESSION: Heterogeneous echogenic liver suggestive but nonspecific for hepatic steatosis. Status post cholecystectomy. Otherwise grossly unremarkable study.
--- NOTE | 2016-07-20 13:10 | CP.CCUPN ---
CCU Subjective - Physician Review Events Since Last Encounter (Free Text): 07/20/16 13:08 Pt s/e at bedside this AM. NAEO. Patient just returned from a cardiac catheterization with 3 stents placed in the RCA. Patient states that her chest pain has completely resolved and denies any other symptoms besides back pain similar to her chronic back pain and slight pain at the R groin catheter site. CCU Objective - Vital Signs / Intake & Output Vital Signs (Last 4 hours): Vital Signs Temp Pulse Resp BP Pulse Ox 07/20/16 11:40 70 18 109/63 07/20/16 11:30 70 26 H 109/63 98 07/20/16 11:15 70 27 H 105/57 L 98 07/20/16 11:10 105/57 L 07/20/16 11:00 68 23 112/65 98 07/20/16 10:56 98.8 F 70 16 116/72 98 07/20/16 10:50 70 07/20/16 10:45 71 25 H 116/72 96 07/20/16 10:44 72 16 127/71 96 07/20/16 10:40 72 18 157/94 H 07/20/16 10:30 69 23 127/71 96 07/20/16 10:25 72 16 127/84 07/20/16 10:15 71 23 157/94 H 97 07/20/16 10:13 127/84 07/20/16 10:10 70 16 130/96 H 07/20/16 10:05 72 23 127/84 95 07/20/16 10:00 72 28 H 130/96 H 95 07/20/16 09:55 72 18 127/70 07/20/16 09:53 70 18 127/70 98 07/20/16 09:40 72 18 127/70 07/20/16 09:31 102/72 07/20/16 09:30 72 20 127/70 96 07/20/16 09:28 72 18 127/70 97 Intake and Output (Last 8hrs): Intake & Output 07/19/16 07/20/16 07/20/16 22:59 06:59 14:59 Intake Total 818 564 Output Total 2050 1825 Balance -1232 1269 Intake: IV 258 564 Left Antecubital 36 Right Antecubital 172 399 Oral 560 Output: Urine 1800 1825 Urine, Voided 1800 1825 Urine/Stool Mix 250 Other: Voiding Method Bedpan # Voids Urine, Voided 4 4 # Bowel Movements 1 - Physical Exam Head: Positive for: Atraumatic, Normocephalic Pupils: Positive for: PERRL Extroacular Muscles: Positive for: EOMI Conjunctiva: Positive for: Normal Mouth: Positive for: Moist Mucous Membranes Neck: Positive for: Normal Range of Motion Respiratory/Chest: Positive for: Clear to Auscultation, Good Air Exchange. Negative for: Respiratory Distress, Accessory Muscle Use Cardiovascular: Positive for: Regular Rate and Rhythm, Normal S1, S2. Negative for: Murmurs Abdomen: Positive for: Normal Bowel Sounds. Negative for: Tenderness, Distention, Peritoneal Signs Back: Positive for: Normal Inspection Upper Extremity: Positive for: Normal Inspection. Negative for: Cyanosis, Edema Lower Extremity: Positive for: Normal Inspection. Negative for: Edema Neurological: Positive for: GCS=15, CN II-XII Intact, Speech Normal Skin: Positive for: Warm, Dry, Normal Color. Negative for: Rashes Psychiatric: Positive for: Alert, Oriented x 3, Normal Insight, Normal Concentration - Medications Active Medications: Active Medications Generic Name Dose Route Start Last Admin Trade Name Freq PRN Reason Stop Dose Admin Aspirin 81 mg 07/20/16 10:00 07/20/16 09:32 Ecotrin PO 81 mg DAILY ANDREY Administration Clopidogrel Bisulfate 75 mg 07/20/16 10:00 07/20/16 09:32 Plavix PO Not Given DAILY ANDREY Sodium Chloride 1,000 mls @ 100 mls/hr 07/20/16 08:30 07/20/16 09:34 Sodium Chloride 0.9% IV 07/20/16 18:29 100 mls/hr .Q10H ANDREY Administration Metoprolol Tartrate 50 mg 07/20/16 08:30 07/20/16 09:31 Lopressor PO 50 mg Q12H ANDREY Administration Morphine Sulfate 1 mg 07/20/16 09:17 07/20/16 09:39 Morphine IVP 1 mg Q3 PRN Administration pain Ondansetron HCl 4 mg 07/20/16 00:48 07/20/16 00:58 Zofran Inj IVP 4 mg Q6H PRN Administration Nausea/Vomiting Pantoprazole Sodium 40 mg 07/20/16 10:00 07/20/16 09:31 Protonix Inj IV 40 mg DAILY ANDREY Administration - Patient Studies Lab Studies: Microbiology Studies 07/19/16 11:12 MRSA Culture (Admit) - Final Nose MRSA NOT DETECTED 07/19/16 12:28 Urine Culture - Final Urine No Growth (<1,000 CFU/ML) Lab Studies 07/20/16 07/20/16 07/20/16 Range/Units 10:45 05:15 05:15 WBC 13.8 H D (4.5-11.0) 10^3/ul RBC 4.33 (3.5-6.1) 10^6/uL Hgb 9.6 L (12.0-16.0) gm/dL Hct 30.8 L (36.0-48.0) % MCV 71.1 L (80.0-105.0) fL MCH 22.2 L (25.0-35.0) pg MCHC 31.2 (31.0-37.0) g/dl RDW 19.5 H (11.5-14.5) % Plt Count 292 (120.0-450.0) 10^3/uL MPV 10.1 (7.0-11.0) fl Gran % 59.7 (50.0-68.0) % Lymph % (Auto) 29.0 (22.0-35.0) % [place] % (Auto) 10.7 H (1.0-6.0) % Eos % (Auto) 0.4 L (1.5-5.0) % Baso % (Auto) 0.2 (0.0-3.0) % Gran # 8.25 H (1.4-6.5) Lymph # 4.0 H (1.2-3.4) [place] # 1.5 H (0.1-0.6) Eos # 0.1 (0.0-0.7) Baso # 0.03 (0.0-2.0) K/mm3 PT 10.7 (9.9-11.8) Seconds INR 0.99 (0.93-1.08) APTT 54.7 H (23.7-30.8) Seconds Sodium (132-148) mmol/L Potassium (3.6-5.0) mmol/L Chloride (98-107) mmol/L Carbon Dioxide (21-33) mmol/L Anion Gap (10-20) BUN (7-21) mg/dL Creatinine (0.5-1.4) mg/dL Est GFR ( Amer) Est GFR (Non-Af Amer) Random Glucose (70-110) mg/dL Calcium (8.4-10.5) mg/dL Phosphorus (2.5-4.5) mg/dL Magnesium (1.7-2.2) mg/dL Total Bilirubin (0.2-1.3) mg/dL AST (15-39) U/L ALT (7-56) U/L Alkaline Phosphatase (38-133) U/L Troponin I 24.90 H* ng/mL NT-Pro-B Natriuret Pep (0-450) pg/mL Total Protein (5.8-8.3) g/dL Albumin (3.0-4.8) g/dL Globulin gm/dL Albumin/Globulin Ratio (1.1-1.8) Triglycerides (35-160) mg/dL Cholesterol (130-200) mg/dL LDL Cholesterol Direct (0-129) mg/dL HDL Cholesterol (29-60) mg/dL TSH 3rd Generation (0.46-4.68) mIU/mL 07/20/16 07/19/16 07/19/16 Range/Units 05:15 23:20 23:20 WBC (4.5-11.0) 10^3/ul RBC (3.5-6.1) 10^6/uL Hgb (12.0-16.0) gm/dL Hct (36.0-48.0) % MCV (80.0-105.0) fL MCH (25.0-35.0) pg MCHC (31.0-37.0) g/dl RDW (11.5-14.5) % Plt Count (120.0-450.0) 10^3/uL MPV (7.0-11.0) fl Gran % (50.0-68.0) % Lymph % (Auto) (22.0-35.0) % [place] % (Auto) (1.0-6.0) % Eos % (Auto) (1.5-5.0) % Baso % (Auto) (0.0-3.0) % Gran # (1.4-6.5) Lymph # (1.2-3.4) [place] # (0.1-0.6) Eos # (0.0-0.7) Baso # (0.0-2.0) K/mm3 PT (9.9-11.8) Seconds INR (0.93-1.08) APTT 65.4 H (23.7-30.8) Seconds Sodium 141 (132-148) mmol/L Potassium 3.9 (3.6-5.0) mmol/L Chloride 104 (98-107) mmol/L Carbon Dioxide 31 (21-33) mmol/L Anion Gap 10 (10-20) BUN 11 (7-21) mg/dL Creatinine 1.0 (0.5-1.4) mg/dL Est GFR ( Amer) > 60 Est GFR (Non-Af Amer) 57 Random Glucose 99 (70-110) mg/dL Calcium 9.7 (8.4-10.5) mg/dL Phosphorus 2.6 (2.5-4.5) mg/dL Magnesium 2.0 (1.7-2.2) mg/dL Total Bilirubin 1.2 (0.2-1.3) mg/dL AST 230 H (15-39) U/L ALT 125 H (7-56) U/L Alkaline Phosphatase 153 H (38-133) U/L Troponin I 21.60 H* 25.10 H* ng/mL NT-Pro-B Natriuret Pep 1480 H (0-450) pg/mL Total Protein 7.5 (5.8-8.3) g/dL Albumin 3.8 (3.0-4.8) g/dL Globulin 3.7 gm/dL Albumin/Globulin Ratio 1.0 L (1.1-1.8) Triglycerides 165 H (35-160) mg/dL Cholesterol 211 H (130-200) mg/dL LDL Cholesterol Direct 118 (0-129) mg/dL HDL Cholesterol 55 (29-60) mg/dL TSH 3rd Generation (0.46-4.68) mIU/mL 07/19/16 07/19/16 07/19/16 Range/Units 16:50 16:50 11:15 WBC (4.5-11.0) 10^3/ul RBC (3.5-6.1) 10^6/uL Hgb (12.0-16.0) gm/dL Hct (36.0-48.0) % MCV (80.0-105.0) fL MCH (25.0-35.0) pg MCHC (31.0-37.0) g/dl RDW (11.5-14.5) % Plt Count (120.0-450.0) 10^3/uL MPV (7.0-11.0) fl Gran % (50.0-68.0) % Lymph % (Auto) (22.0-35.0) % [place] % (Auto) (1.0-6.0) % Eos % (Auto) (1.5-5.0) % Baso % (Auto) (0.0-3.0) % Gran # (1.4-6.5) Lymph # (1.2-3.4) [place] # (0.1-0.6) Eos # (0.0-0.7) Baso # (0.0-2.0) K/mm3 PT (9.9-11.8) Seconds INR (0.93-1.08) APTT 86.0 H* (23.7-30.8) Seconds Sodium 138 (132-148) mmol/L Potassium 3.4 L (3.6-5.0) mmol/L Chloride 100 (98-107) mmol/L Carbon Dioxide 31 (21-33) mmol/L Anion Gap 10 (10-20) BUN 13 (7-21) mg/dL Creatinine 0.9 (0.5-1.4) mg/dL Est GFR ( Amer) > 60 Est GFR (Non-Af Amer) > 60 Random Glucose 93 (70-110) mg/dL Calcium 9.9 (8.4-10.5) mg/dL Phosphorus (2.5-4.5) mg/dL Magnesium (1.7-2.2) mg/dL Total Bilirubin 1.3 (0.2-1.3) mg/dL AST 331 H (15-39) U/L ALT 140 H (7-56) U/L Alkaline Phosphatase 156 H (38-133) U/L Troponin I 28.70 H* D ng/mL NT-Pro-B Natriuret Pep (0-450) pg/mL Total Protein 7.8 (5.8-8.3) g/dL Albumin 3.9 (3.0-4.8) g/dL Globulin 3.9 gm/dL Albumin/Globulin Ratio 1.0 L (1.1-1.8) Triglycerides (35-160) mg/dL Cholesterol (130-200) mg/dL LDL Cholesterol Direct (0-129) mg/dL HDL Cholesterol (29-60) mg/dL TSH 3rd Generation 2.11 (0.46-4.68) mIU/mL Laboratory Results - last 24 hr 07/19/16 07/19/16 07/19/16 11:15 16:50 16:50 WBC RBC Hgb Hct MCV MCH MCHC RDW Plt Count MPV Gran % Lymph % (Auto) [place] % (Auto) Eos % (Auto) Baso % (Auto) Gran # Lymph # [place] # Eos # Baso # PT INR APTT 86.0 H* Sodium 138 Potassium 3.4 L Chloride 100 Carbon Dioxide 31 Anion Gap 10 BUN 13 Creatinine 0.9 Est GFR ( Amer) > 60 Est GFR (Non-Af Amer) > 60 Random Glucose 93 Calcium 9.9 Phosphorus Magnesium Total Bilirubin 1.3 AST 331 H ALT 140 H Alkaline Phosphatase 156 H Troponin I 28.70 H* D NT-Pro-B Natriuret Pep Total Protein 7.8 Albumin 3.9 Globulin 3.9 Albumin/Globulin Ratio 1.0 L Triglycerides Cholesterol LDL Cholesterol Direct HDL Cholesterol TSH 3rd Generation 2.11 07/19/16 07/19/16 07/20/16 23:20 23:20 05:15 WBC RBC Hgb Hct MCV MCH MCHC RDW Plt Count MPV Gran % Lymph % (Auto) [place] % (Auto) Eos % (Auto) Baso % (Auto) Gran # Lymph # [place] # Eos # Baso # PT INR APTT 65.4 H Sodium 141 Potassium 3.9 Chloride 104 Carbon Dioxide 31 Anion Gap 10 BUN 11 Creatinine 1.0 Est GFR ( Amer) > 60 Est GFR (Non-Af Amer) 57 Random Glucose 99 Calcium 9.7 Phosphorus 2.6 Magnesium 2.0 Total Bilirubin 1.2 AST 230 H ALT 125 H Alkaline Phosphatase 153 H Troponin I 25.10 H* 21.60 H* NT-Pro-B Natriuret Pep 1480 H Total Protein 7.5 Albumin 3.8 Globulin 3.7 Albumin/Globulin Ratio 1.0 L Triglycerides 165 H Cholesterol 211 H LDL Cholesterol Direct 118 HDL Cholesterol 55 TSH 3rd Generation 07/20/16 07/20/16 07/20/16 05:15 05:15 10:45 WBC 13.8 H D RBC 4.33 Hgb 9.6 L Hct 30.8 L MCV 71.1 L MCH 22.2 L MCHC 31.2 RDW 19.5 H Plt Count 292 MPV 10.1 Gran % 59.7 Lymph % (Auto) 29.0 [place] % (Auto) 10.7 H Eos % (Auto) 0.4 L Baso % (Auto) 0.2 Gran # 8.25 H Lymph # 4.0 H [place] # 1.5 H Eos # 0.1 Baso # 0.03 PT 10.7 INR 0.99 APTT 54.7 H Sodium Potassium Chloride Carbon Dioxide Anion Gap BUN Creatinine Est GFR ( Amer) Est GFR (Non-Af Amer) Random Glucose Calcium Phosphorus Magnesium Total Bilirubin AST ALT Alkaline Phosphatase Troponin I 24.90 H* NT-Pro-B Natriuret Pep Total Protein Albumin Globulin Albumin/Globulin Ratio Triglycerides Cholesterol LDL Cholesterol Direct HDL Cholesterol TSH 3rd Generation EKG/Cardiology Studies: Cardiology / EKG Studies 07/20/16 06:00 ELECTROCARDIOGRAM DAILY Comment: Reason For Exam: Elevated trop, possible STEMI, f/u 07/20/16 08:28 ELECTROCARDIOGRAM Urgent Comment: 12 lead EKG upon arrival in unit Reason For Exam: post ptca 07/20/16 08:30 ELECTROCARDIOGRAM DAILY Comment: Reason For Exam: chest pain 07/21/16 08:30 ELECTROCARDIOGRAM DAILY Comment: Reason For Exam: chest pain Critical Care Progress Note - Nutrition Nutrition: Nutrition Category Date Time Status Heart Healthy Diet [DIET] Diets 07/19/16 Lunch Ordered
--- NOTE | 2016-07-20 13:38 | CARD ---
APPROVED REPORT EKG Measurement Heart [id number] <Conclusion> Normal sinus rhythm Moderate voltage criteria for LVH, may be normal variant RVCD Inferior infarct, age undetermined Anterior infarct, age undetermined STTW changes c/w ischemia
--- NOTE | 2016-07-20 14:15 | CP.CCUPN ---
CCU Subjective - Physician Review Events Since Last Encounter (Free Text): 07/20/16 14:10 55 y/o F s/p Cardiac cath this a.m w/ placement of 3 stents in the RCA. Post -op mild groin pain, laying flat w/o SOB or CP. Vitals WNL able to answer all questions CCU Objective - Vital Signs / Intake & Output Vital Signs (Last 4 hours): Vital Signs Temp Pulse Resp BP Pulse Ox 07/20/16 13:14 72 18 97/39 L 99 07/20/16 13:02 73 24 97/39 L 99 07/20/16 13:00 73 27 H 98 07/20/16 12:40 72 18 97/39 L 07/20/16 12:30 71 29 H 107/63 98 07/20/16 12:15 72 25 H 113/67 99 07/20/16 12:10 107/63 07/20/16 12:00 71 25 H 96/58 L 97 07/20/16 11:45 71 24 96/58 L 97 07/20/16 11:40 70 18 109/63 07/20/16 11:30 70 26 H 109/63 98 07/20/16 11:15 70 27 H 105/57 L 98 07/20/16 11:10 105/57 L 07/20/16 11:00 68 23 112/65 98 07/20/16 10:56 98.8 F 70 16 116/72 98 07/20/16 10:50 70 07/20/16 10:45 71 25 H 116/72 96 07/20/16 10:44 72 16 127/71 96 07/20/16 10:40 72 18 157/94 H 07/20/16 10:30 69 23 127/71 96 07/20/16 10:25 72 16 127/84 07/20/16 10:15 71 23 157/94 H 97 07/20/16 10:13 127/84 Intake and Output (Last 8hrs): Intake & Output 07/19/16 07/20/16 07/20/16 22:59 06:59 14:59 Intake Total 818 564 Output Total 2050 1825 Balance -1230 -7087 Intake: IV 258 564 Left Antecubital 36 Right Antecubital 172 399 Oral 560 Output: Urine 1800 1825 Urine, Voided 1800 1825 Urine/Stool Mix 250 Other: Voiding Method Bedpan Bedpan # Voids Urine, Voided 4 4 # Bowel Movements 1 - Physical Exam Head: Positive for: Atraumatic, Normocephalic Pupils: Positive for: PERRL Extroacular Muscles: Positive for: EOMI Conjunctiva: Positive for: Normal Mouth: Positive for: Moist Mucous Membranes Pharnyx: Positive for: Normal Nose (External): Positive for: Atraumatic Neck: Positive for: Normal Range of Motion Respiratory/Chest: Positive for: Clear to Auscultation, Good Air Exchange. Negative for: Respiratory Distress, Accessory Muscle Use Cardiovascular: Positive for: Regular Rate and Rhythm, Normal S1, S2. Negative for: Murmurs Abdomen: Positive for: Normal Bowel Sounds. Negative for: Tenderness, Distention, Peritoneal Signs Back: Positive for: Normal Inspection Upper Extremity: Positive for: Normal Inspection. Negative for: Cyanosis, Edema Lower Extremity: Positive for: Normal Inspection. Negative for: Edema Neurological: Positive for: GCS=15, CN II-XII Intact, Speech Normal Skin: Positive for: Warm, Dry, Normal Color. Negative for: Rashes Psychiatric: Positive for: Alert, Oriented x 3, Normal Insight, Normal Concentration - Medications Active Medications: Active Medications Generic Name Dose Route Start Last Admin Trade Name Freq PRN Reason Stop Dose Admin Aspirin 81 mg 07/20/16 10:00 07/20/16 09:32 Ecotrin PO 81 mg DAILY ANDREY Administration Clopidogrel Bisulfate 75 mg 07/20/16 10:00 07/20/16 09:32 Plavix PO Not Given DAILY ANDREY Sodium Chloride 1,000 mls @ 100 mls/hr 07/20/16 08:30 07/20/16 09:34 Sodium Chloride 0.9% IV 07/20/16 18:29 100 mls/hr .Q10H ANDREY Administration Metoprolol Tartrate 50 mg 07/20/16 08:30 07/20/16 09:31 Lopressor PO 50 mg Q12H ANDREY Administration Morphine Sulfate 1 mg 07/20/16 09:17 07/20/16 09:39 Morphine IVP 1 mg Q3 PRN Administration pain Ondansetron HCl 4 mg 07/20/16 00:48 07/20/16 00:58 Zofran Inj IVP 4 mg Q6H PRN Administration Nausea/Vomiting Pantoprazole Sodium 40 mg 07/20/16 10:00 07/20/16 09:31 Protonix Inj IV 40 mg DAILY ANDREY Administration - Patient Studies Lab Studies: Microbiology Studies 07/19/16 11:12 MRSA Culture (Admit) - Final Nose MRSA NOT DETECTED 07/19/16 12:28 Urine Culture - Final Urine No Growth (<1,000 CFU/ML) Lab Studies 07/20/16 07/20/16 07/20/16 Range/Units 10:45 05:15 05:15 WBC 13.8 H D (4.5-11.0) 10^3/ul RBC 4.33 (3.5-6.1) 10^6/uL Hgb 9.6 L (12.0-16.0) gm/dL Hct 30.8 L (36.0-48.0) % MCV 71.1 L (80.0-105.0) fL MCH 22.2 L (25.0-35.0) pg MCHC 31.2 (31.0-37.0) g/dl RDW 19.5 H (11.5-14.5) % Plt Count 292 (120.0-450.0) 10^3/uL MPV 10.1 (7.0-11.0) fl Gran % 59.7 (50.0-68.0) % Lymph % (Auto) 29.0 (22.0-35.0) % [place] % (Auto) 10.7 H (1.0-6.0) % Eos % (Auto) 0.4 L (1.5-5.0) % Baso % (Auto) 0.2 (0.0-3.0) % Gran # 8.25 H (1.4-6.5) Lymph # 4.0 H (1.2-3.4) [place] # 1.5 H (0.1-0.6) Eos # 0.1 (0.0-0.7) Baso # 0.03 (0.0-2.0) K/mm3 PT 10.7 (9.9-11.8) Seconds INR 0.99 (0.93-1.08) APTT 54.7 H (23.7-30.8) Seconds Sodium (132-148) mmol/L Potassium (3.6-5.0) mmol/L Chloride (98-107) mmol/L Carbon Dioxide (21-33) mmol/L Anion Gap (10-20) BUN (7-21) mg/dL Creatinine (0.5-1.4) mg/dL Est GFR ( Amer) Est GFR (Non-Af Amer) Random Glucose (70-110) mg/dL Calcium (8.4-10.5) mg/dL Phosphorus (2.5-4.5) mg/dL Magnesium (1.7-2.2) mg/dL Total Bilirubin (0.2-1.3) mg/dL AST (15-39) U/L ALT (7-56) U/L Alkaline Phosphatase (38-133) U/L Troponin I 24.90 H* ng/mL NT-Pro-B Natriuret Pep (0-450) pg/mL Total Protein (5.8-8.3) g/dL Albumin (3.0-4.8) g/dL Globulin gm/dL Albumin/Globulin Ratio (1.1-1.8) Triglycerides (35-160) mg/dL Cholesterol (130-200) mg/dL LDL Cholesterol Direct (0-129) mg/dL HDL Cholesterol (29-60) mg/dL TSH 3rd Generation (0.46-4.68) mIU/mL 07/20/16 07/19/16 07/19/16 Range/Units 05:15 23:20 23:20 WBC (4.5-11.0) 10^3/ul RBC (3.5-6.1) 10^6/uL Hgb (12.0-16.0) gm/dL Hct (36.0-48.0) % MCV (80.0-105.0) fL MCH (25.0-35.0) pg MCHC (31.0-37.0) g/dl RDW (11.5-14.5) % Plt Count (120.0-450.0) 10^3/uL MPV (7.0-11.0) fl Gran % (50.0-68.0) % Lymph % (Auto) (22.0-35.0) % [place] % (Auto) (1.0-6.0) % Eos % (Auto) (1.5-5.0) % Baso % (Auto) (0.0-3.0) % Gran # (1.4-6.5) Lymph # (1.2-3.4) [place] # (0.1-0.6) Eos # (0.0-0.7) Baso # (0.0-2.0) K/mm3 PT (9.9-11.8) Seconds INR (0.93-1.08) APTT 65.4 H (23.7-30.8) Seconds Sodium 141 (132-148) mmol/L Potassium 3.9 (3.6-5.0) mmol/L Chloride 104 (98-107) mmol/L Carbon Dioxide 31 (21-33) mmol/L Anion Gap 10 (10-20) BUN 11 (7-21) mg/dL Creatinine 1.0 (0.5-1.4) mg/dL Est GFR ( Amer) > 60 Est GFR (Non-Af Amer) 57 Random Glucose 99 (70-110) mg/dL Calcium 9.7 (8.4-10.5) mg/dL Phosphorus 2.6 (2.5-4.5) mg/dL Magnesium 2.0 (1.7-2.2) mg/dL Total Bilirubin 1.2 (0.2-1.3) mg/dL AST 230 H (15-39) U/L ALT 125 H (7-56) U/L Alkaline Phosphatase 153 H (38-133) U/L Troponin I 21.60 H* 25.10 H* ng/mL NT-Pro-B Natriuret Pep 1480 H (0-450) pg/mL Total Protein 7.5 (5.8-8.3) g/dL Albumin 3.8 (3.0-4.8) g/dL Globulin 3.7 gm/dL Albumin/Globulin Ratio 1.0 L (1.1-1.8) Triglycerides 165 H (35-160) mg/dL Cholesterol 211 H (130-200) mg/dL LDL Cholesterol Direct 118 (0-129) mg/dL HDL Cholesterol 55 (29-60) mg/dL TSH 3rd Generation (0.46-4.68) mIU/mL 07/19/16 07/19/16 07/19/16 Range/Units 16:50 16:50 11:15 WBC (4.5-11.0) 10^3/ul RBC (3.5-6.1) 10^6/uL Hgb (12.0-16.0) gm/dL Hct (36.0-48.0) % MCV (80.0-105.0) fL MCH (25.0-35.0) pg MCHC (31.0-37.0) g/dl RDW (11.5-14.5) % Plt Count (120.0-450.0) 10^3/uL MPV (7.0-11.0) fl Gran % (50.0-68.0) % Lymph % (Auto) (22.0-35.0) % [place] % (Auto) (1.0-6.0) % Eos % (Auto) (1.5-5.0) % Baso % (Auto) (0.0-3.0) % Gran # (1.4-6.5) Lymph # (1.2-3.4) [place] # (0.1-0.6) Eos # (0.0-0.7) Baso # (0.0-2.0) K/mm3 PT (9.9-11.8) Seconds INR (0.93-1.08) APTT 86.0 H* (23.7-30.8) Seconds Sodium 138 (132-148) mmol/L Potassium 3.4 L (3.6-5.0) mmol/L Chloride 100 (98-107) mmol/L Carbon Dioxide 31 (21-33) mmol/L Anion Gap 10 (10-20) BUN 13 (7-21) mg/dL Creatinine 0.9 (0.5-1.4) mg/dL Est GFR ( Amer) > 60 Est GFR (Non-Af Amer) > 60 Random Glucose 93 (70-110) mg/dL Calcium 9.9 (8.4-10.5) mg/dL Phosphorus (2.5-4.5) mg/dL Magnesium (1.7-2.2) mg/dL Total Bilirubin 1.3 (0.2-1.3) mg/dL AST 331 H (15-39) U/L ALT 140 H (7-56) U/L Alkaline Phosphatase 156 H (38-133) U/L Troponin I 28.70 H* D ng/mL NT-Pro-B Natriuret Pep (0-450) pg/mL Total Protein 7.8 (5.8-8.3) g/dL Albumin 3.9 (3.0-4.8) g/dL Globulin 3.9 gm/dL Albumin/Globulin Ratio 1.0 L (1.1-1.8) Triglycerides (35-160) mg/dL Cholesterol (130-200) mg/dL LDL Cholesterol Direct (0-129) mg/dL HDL Cholesterol (29-60) mg/dL TSH 3rd Generation 2.11 (0.46-4.68) mIU/mL Laboratory Results - last 24 hr 07/19/16 07/19/16 07/19/16 11:15 16:50 16:50 WBC RBC Hgb Hct MCV MCH MCHC RDW Plt Count MPV Gran % Lymph % (Auto) [place] % (Auto) Eos % (Auto) Baso % (Auto) Gran # Lymph # [place] # Eos # Baso # PT INR APTT 86.0 H* Sodium 138 Potassium 3.4 L Chloride 100 Carbon Dioxide 31 Anion Gap 10 BUN 13 Creatinine 0.9 Est GFR ( Amer) > 60 Est GFR (Non-Af Amer) > 60 Random Glucose 93 Calcium 9.9 Phosphorus Magnesium Total Bilirubin 1.3 AST 331 H ALT 140 H Alkaline Phosphatase 156 H Troponin I 28.70 H* D NT-Pro-B Natriuret Pep Total Protein 7.8 Albumin 3.9 Globulin 3.9 Albumin/Globulin Ratio 1.0 L Triglycerides Cholesterol LDL Cholesterol Direct HDL Cholesterol TSH 3rd Generation 2.11 07/19/16 07/19/16 07/20/16 23:20 23:20 05:15 WBC RBC Hgb Hct MCV MCH MCHC RDW Plt Count MPV Gran % Lymph % (Auto) [place] % (Auto) Eos % (Auto) Baso % (Auto) Gran # Lymph # [place] # Eos # Baso # PT INR APTT 65.4 H Sodium 141 Potassium 3.9 Chloride 104 Carbon Dioxide 31 Anion Gap 10 BUN 11 Creatinine 1.0 Est GFR ( Amer) > 60 Est GFR (Non-Af Amer) 57 Random Glucose 99 Calcium 9.7 Phosphorus 2.6 Magnesium 2.0 Total Bilirubin 1.2 AST 230 H ALT 125 H Alkaline Phosphatase 153 H Troponin I 25.10 H* 21.60 H* NT-Pro-B Natriuret Pep 1480 H Total Protein 7.5 Albumin 3.8 Globulin 3.7 Albumin/Globulin Ratio 1.0 L Triglycerides 165 H Cholesterol 211 H LDL Cholesterol Direct 118 HDL Cholesterol 55 TSH 3rd Generation 07/20/16 07/20/16 07/20/16 05:15 05:15 10:45 WBC 13.8 H D RBC 4.33 Hgb 9.6 L Hct 30.8 L MCV 71.1 L MCH 22.2 L MCHC 31.2 RDW 19.5 H Plt Count 292 MPV 10.1 Gran % 59.7 Lymph % (Auto) 29.0 [place] % (Auto) 10.7 H Eos % (Auto) 0.4 L Baso % (Auto) 0.2 Gran # 8.25 H Lymph # 4.0 H [place] # 1.5 H Eos # 0.1 Baso # 0.03 PT 10.7 INR 0.99 APTT 54.7 H Sodium Potassium Chloride Carbon Dioxide Anion Gap BUN Creatinine Est GFR ( Amer) Est GFR (Non-Af Amer) Random Glucose Calcium Phosphorus Magnesium Total Bilirubin AST ALT Alkaline Phosphatase Troponin I 24.90 H* NT-Pro-B Natriuret Pep Total Protein Albumin Globulin Albumin/Globulin Ratio Triglycerides Cholesterol LDL Cholesterol Direct HDL Cholesterol TSH 3rd Generation EKG/Cardiology Studies: Cardiology / EKG Studies 07/20/16 06:00 ELECTROCARDIOGRAM DAILY Comment: Reason For Exam: Elevated trop, possible STEMI, f/u 07/20/16 08:28 ELECTROCARDIOGRAM Urgent Comment: 12 lead EKG upon arrival in unit Reason For Exam: post ptca 07/20/16 08:30 ELECTROCARDIOGRAM DAILY Comment: Reason For Exam: chest pain 07/21/16 08:30 ELECTROCARDIOGRAM DAILY Comment: Reason For Exam: chest pain Review of Systems - EENT Eyes: UNREMARKABLE Ears: UNREMARKABLE Nose/Mouth/Throat: UNREMARKABLE - Breasts Breasts: UNREMARKABLE - Cardiovascular Cardiovascular: UNREMARKABLE - Respiratory Respiratory: UNREMARKABLE - Gastrointestinal Gastrointestinal: UNREMARKABLE - Genitourinary Genitourinary: UNREMARKABLE - Reproductive: Female Reproductive:Female: UNREMARKABLE - Menstruation Menstruation: UNREMARKABLE - Musculoskeletal Musculoskeletal: UNREMARKABLE - Integumentary Integumentary: UNREMARKABLE - Neurological Neurological: UNREMARKABLE Critical Care Progress Note - Ventilator Checklist Head of Bed 30 Degrees: Yes PUD Prophalyxis: Yes DVT Prophylaxis: Yes - Nutrition Nutrition: Nutrition Category Date Time Status Heart Healthy Diet [DIET] Diets 07/19/16 Lunch Ordered Assessment/Plan - Assessment and Plan (Free Text) Assessment: 55 y/o F w/ Unstable Angina/ [place]STEM[place] cruise [place] over the weekend. Brought to [facility] yesterday . Cardiac catherization completed today with new RCA stents x 3. Continued on Asprin, Plavix , Lipitor . Acei possibly to start in 24 hrs. ECHO pending. Needs SUE sleep study evaluation , due to high risk and symptoms. Groin check, 4 hrs rest flat and diet resumed this afternoon. transfer to Telemetry later today. Transaminitis, likely from hypotension from NSTEMI but could be from Gallstones / hepatic congestion. U/S abd ordered and GI consulted. Heparin sq tid cc time 65 min
--- NOTE | 2016-07-20 16:01 | CON ---
DATE: 07/20/2016 The patient seen in CCU 129, bed 3. CHIEF COMPLAINT: Fever x 1 day duration. HISTORY OF PRESENT ILLNESS: This is a 55-year-old female with past medical history significant for a rthritis, chronic back pain, hypertension, hyperlipidemia, history of cholecystectomy. The patient w as on a cruise to [facility], was brought into the Emergency Room, was seen by Dr. Ari ruffin ause patient had chest pain. The patient was reported with a ST elevation myocardial infarction yest erday at 2 a.m. while on the cruise ship that began complaining of chest pain and diarrhea. EKG repo rtedly showed an ST elevation. The patient was treated medically with aspirin, Plavix, Lovenox, morp david, and arrived to the Emergency Room with nitroglycerin drip and the patient in the Emergency Room had a temperature 100.7. Infectious disease consultation requested. PAST MEDICAL HISTORY: Significant for hypertension and hyperlipidemia and chronic back pain, arthrit is. PAST SURGICAL HISTORY: Significant for a cholecystectomy and carpal tunnel surgery. She has no prior cardiac history. ALLERGIES: SHE IS ALLERGIC TO BACTRIM, AMOXICILLIN, ATORVASTATIN. SHE GETS A RASH TO AMOXICILLIN AN D BACTRIM. MEDICATIONS: At home include the patient to be on a statin and patient was also on Lopressor. PHYSICAL EXAMINATION: GENERAL: The patient is in bed, answering questions appropriately. VITAL SIGNS: Temperature of 100.7, blood pressure is 97/39, respiratory rate of 24, heart rate of 73 . HEENT: Unremarkable. NECK: Supple. LUNGS: Have decreased breath sounds. HEART: Normal S1, S2. ABDOMEN: Soft, nontender, no organomegaly, no rebound, no guarding. LABORATORY EXAMINATION: Reveals a white count of 13,800, hemoglobin of 9 and platelets of 292. Chem istries reveals the BUN of 11, creatinine of 1.0. BNP of 1080. Urinalysis is unremarkable. The patient had an abdominal ultrasound, which revealed the gallbladder was removed and otherwise nor mal ultrasound. There is hepatic steatosis. Dr. Cameron Martines's note is reviewed and Dr. Valles's co nsultation is reviewed. Review of orders reveals blood cultures have been ordered, urine culture has not been ordered. Dr. Chan's cardiology consultation is reviewed. Cardiac catheterization repo rt is reviewed. The patient had a left mainstem that had 20% ostial tapering and left anterior desce nding artery and its branches with diffuse disease and right coronary artery was occluded proximally. ASSESSMENT AND PLAN: A 55-year-old female with history of chronic back pain, hypertension, hyperlipi demia and arthritis. Admitted with chest pain, found to have systemic inflammatory response syndrome , low-grade fevers, leukocytosis with acute inferior wall myocardial infarction and acute ST elevatio n myocardial infarction, inferior wall myocardial infarction, status post cardiac catheterization tod ay and now with mild leukocytosis and fevers. Will order blood cultures, urine cultures and urinalys is and procalcitonin. I doubt patient to have an infectious etiology. Will hold off any antibiotics at this time and will check on the sarabia culture results and make further recommendations. Check on t he procalcitonin. Jose Angel Camejo MD cc: [phone] TT: 07/20/2016 14:40:21 Confirmation # [id number] Dictation # [id number] en
[2016-07-20 22:15] LABS: URINE APPEARANCE CLEAR (CLEAR); URINE BILIRUBIN NEGATIVE (NEGATIVE); URINE BLOOD NEGATIVE (NEGATIVE); URINE COLOR YELLOW (YELLOW); URINE GLUCOSE (UA) NEGATIVE (NEGATIVE); URINE KETONE NEGATIVE (NEGATIVE); URINE LEUKOCYTE ESTERASE NEGATIVE Leu/uL (NEGATIVE); URINE PROTEIN TRACE mg/dL (<30 mg/dL); URINE UROBILINOGEN 0.2 E.U./dL (<1 E.U./dL)
[2016-07-20 22:21] LABS: URINE RBC 0 - 2 /hpf (0-2); URINE WBC 0 - 2 /hpf (0-6)
[2016-07-20 22:22] LABS: URINE AMORPHOUS SEDIMENT FEW; URINE BACTERIA MANY (NEG)
[2016-07-21 05:46] VITALS: O2SAT 99
[2016-07-21 07:03] LABS: ADD MANUAL DIFF? NO
[2016-07-21 07:12] LABS: BASO # 0.01 K/mm3 (0.0-2.0); BASO % 0.1 % (0.0-3.0); GRAN # 10.33 (1.4-6.5); GRAN % 71.6 % (50.0-68.0); HEMATOCRIT 28.6 % (36.0-48.0); LYMPH # 2.7 (1.2-3.4); MEAN CELL VOLUME 71.1 fL (80.0-105.0); MEAN CORPUSCULAR HEMOGLOBIN 22.1 pg (25.0-35.0); MEAN CORPUSCULAR HGB CONC 31.1 g/dl (31.0-37.0); MEAN PLATELET VOLUME 8.9 fl (7.0-11.0); MONO # 1.3 (0.1-0.6); MONO % 9.3 % (1.0-6.0); PLATELET COUNT 240 10^3/uL (120.0-450.0); RED CELL DISTRIBUTION WIDTH 18.7 % (11.5-14.5); WHITE BLOOD COUNT 14.4 10^3/ul (4.5-11.0)
[2016-07-21] MEDS: DiphenhydrAMINE 50 mg/ml Inj ONE (07:22)
[2016-07-21] MEDS: Nitroglycerin 50mg in D5W 50 MG/250 ML BOTTLE IV ONE (07:25)
[2016-07-21] MEDS: Famotidine 20mg/50ml 20 MG/50 ML BAG IVPB ONE (07:27)
[2016-07-21] MEDS: Midazolam 2 MG/2 ML VIAL ONE (07:28)
[2016-07-21 07:31] LABS: ALKALINE PHOSPHATASE 156 U/L (38-133); ALT/SGPT 143 U/L (7-56); AST/SGOT 163 U/L (15-39); BILIRUBIN,TOTAL 0.8 mg/dL (0.2-1.3); BLOOD UREA NITROGEN 14 mg/dL (7-21); CALCIUM 8.9 mg/dL (8.4-10.5); CARBON DIOXIDE 28 mmol/L (21-33); CHLORIDE 106 mmol/L (95-110); GFR AFRICAN-AMERICAN > 60; GLUCOSE,RANDOM 103 mg/dL (70-110); MAGNESIUM 1.9 mg/dL (1.7-2.2); PHOSPHOROUS 3.1 mg/dL (2.5-4.5); POTASSIUM 3.6 mmol/L (3.6-5.0); SODIUM 138 mmol/L (132-148); TOTAL PROTEIN 7.2 g/dL (5.8-8.3)
[2016-07-21] MEDS: Pantoprazole 40 mg EC Tab PO SCH (08:02)
--- NOTE | 2016-07-21 08:50 | CP.PCM.PN ---
Subjective - Date & Time of Evaluation Date of Evaluation: 07/21/16 Time of Evaluation: 07:00 - Subjective Subjective: Stable on 2R s/p RCA PCI with QUENTIN x 3 done yesterday-see report. She feels OK this AM. No CP or SOB. V/S noted. RSR PE: Lungs: clear Cor.: S1S2 Abd.: soft Ext.: giovany edema. Neuro.: alert I/O= 1640/601 ECG 07/21: RSR, LVH, IMI, QS V1, no change ECHO done: will check Labs noted: H/H 8.9/28.6, K+= 3.6 Objective - Vital Signs/Intake and Output Vital Signs (last 24 hours): Temp Pulse Resp BP Pulse Ox 98.6 F 90 20 117/73 99 07/21/16 05:45 07/21/16 05:45 07/21/16 05:45 07/21/16 05:45 07/21/16 05:45 Intake and Output: 07/21/16 07/21/16 06:59 18:59 Intake Total 240 Output Total 1 Balance 239 - Medications Medications: Current Medications Aspirin (Ecotrin) 81 mg PO DAILY [facility] Last Admin: 07/20/16 09:32 Dose: 81 mg Azithromycin (Zithromax) 500 mg PO DAILY [facility] PRN Reason: Protocol Clopidogrel Bisulfate (Plavix) 75 mg PO DAILY [facility] Last Admin: 07/20/16 09:32 Dose: Not Given Heparin Sodium (Porcine) (Heparin) 5,000 units SC Q8 ANDREY PRN Reason: Protocol Last Admin: 07/21/16 05:23 Dose: 5,000 units Metoprolol Tartrate (Lopressor) 25 mg PO BID [facility] Morphine Sulfate (Morphine) 1 mg IVP Q3 PRN PRN Reason: pain Last Admin: 07/20/16 09:39 Dose: 1 mg Ondansetron HCl (Zofran Inj) 4 mg IVP Q6H PRN PRN Reason: Nausea/Vomiting Last Admin: 07/20/16 00:58 Dose: 4 mg Pantoprazole Sodium (Protonix Ec Tab) 40 mg PO ACB [facility] Last Admin: 07/21/16 08:02 Dose: 40 mg - Labs Labs: 07/21/16 06:35 07/21/16 06:35 PT 10.7 Seconds (9.9-11.8) 07/20/16 05:15 INR 0.99 (0.93-1.08) 07/20/16 05:15 APTT 27.3 Seconds (23.7-30.8) 07/20/16 14:20 Assessment and Plan - Assessment and Plan (Free Text) Plan: Assessment: Acute IMI on cruise ship ~ 07/18/16 CAD/occluded RCA/PCI RCA with QUENTIN x3 and with mod LVD, EF ~40% HBP HLD Obesity Anemia Possible Fatty Liver Possible SUE Plan: Will check echo OOB ad neha Decrease metoprolol 25 BID (low BP readings at times) Continue ASA, Plavix (min. 1 year told to pt.) and provide script fpr pravastatin 20 mg. daily trial. Add JULEE/SEEMA as out-pt. She is concerned about low BP readings. She will f/u with local industrial hygiene technician at home in [place] Anemia/GI w/u and Sleep Eval. to follow at home. Cardiac Rehab as per her local industrial hygiene technician.
--- NOTE | 2016-07-21 09:08 | PN ---
DATE: 07/21/2016 Her complaints were with her right ear today. It has been steadily getting worse over the last 24 hours and now it hurts. She tells me it feels like an ear infection. I took a look. It is mildly red. It looks like it is on its way. I will put her on some antibiotics. Although infectious disease did not want her on IV antibiotics I think we should cover her ear. She is ALLERGIC TO PENICILLIN. I will put her on the Zithromax. I think this might also help her urine because there are many bacteria in the urine. PHYSICAL EXAMINATION: VITAL SIGNS: 98.6 temp, 90 pulse, 117/73 blood pressure, 20 respiratory rate, 99% O2 sat on room air. GENERAL: She is also chest pain free, status post cardiac stent by cardiology yesterday. HEENT: Head is atraumatic, normocephalic. The right ear is reddened, starting an otitis media. Throat is mildly red, not bad. NECK: Supple. She is warm to touch, although no temperature at this time. She had 100.6 yesterday. It has been going up and down she tells me. HEART: Regular rate. LUNGS: Decreased breath sounds, but clear. ABDOMEN: Soft, obese. EXTREMITIES: No edema. MEDICATIONS: She is currently on Ecotrin, heparin, Lopressor, morphine, Plavix , Protonix, Zofran and I added Zithromax. LABORATORY DATA: The blood test shows a 14.4 white count. It is steadily going up. It was 11.4, now 13.8, now 14 4. Hemoglobin dropped to 8.9 with 28.6 hematocrit and 240 platelets. I am hoping the Zithromax might help the white count. Sodium is 138, potassium 3.6, BUN is 14, creatinine 1, GFR is greater than 60, sugar is 57, calcium is 8.9, magnesium is 1.9, total bili is 0.8. The liver enzymes are coming down. AST is 163, ALT is 143, and alk phos 156. Troponin was 24.9 yesterday and the total protein 7.2. Urine showed many bacteria. I will put her on some Zithromax 500 daily, see if infectious disease wants to change that. Continue with aggressive treatment and care and check her labs tomorrow. I am upset with the white count going up as opposed to coming down unless it is a little stress related from the chest pain, the myocardial infarction and the catheterization. Continue with aggressive treatment and care. add back lovenox and start PT as per ortho discussed w/ son at length. Cameron Martines DO cc: [id number] TT: 07/21/2016 09:08:14 Confirmation # [id number] Dictation # [id number] tn MTDD
[2016-07-21] MEDS: Morphine 2 mg/ml ISec IVP PRN (09:25)
--- NOTE | 2016-07-21 09:49 | CARD ---
APPROVED REPORT EKG Measurement Heart [id number] <Conclusion> Normal sinus rhythm Voltage criteria for left ventricular hypertrophy Inferior infarct, age undetermined Abnormal ECG
--- NOTE | 2016-07-21 11:12 | CARD ---
APPROVED REPORT EXAM: Two-dimensional and M-mode echocardiogram with Doppler and color Doppler. Other Information Quality : AverageRhythm : INDICATION Chest Pain , IMI 2D DIMENSIONS Left Atrium (2D)3.7 (1.6-4.0cm)IVSd1.3 (0.7-1.1cm) LVDd4.0 (3.9-5.9cm)PWd1.2 (0.7-1.1cm) LVDs2.9 (2.5-4.0cm)FS (%) 26.5 % LVEF (%)52.0 (>50%) M-Mode DIMENSIONS Aortic Root2.80 (2.2-3.7cm)Aortic Cusp Exc.1.80 (1.5-2.0cm) Aortic Valve AoV Peak Aetqewvk217.0cm/s Mitral Valve E/A ratio0.0 TDI E/Lateral E'0.0E/Medial E'0.0 Tricuspid Valve TR Peak [id number] [id number] Peak Gr.23mmHg [id number] LEFT VENTRICLE The left ventricle is normal size. There is mild concentric left ventricular hypertrophy. The left ventricular function is normal. The left ventricular ejection fraction is within the normal range. There is normal LV segmental wall motion. RIGHT VENTRICLE The right ventricle is normal size. ATRIA The left atrium size is normal. The right atrium size is normal. The interatrial septum is intact with no evidence for an atrial septal defect. AORTIC VALVE The aortic valve is normal in structure. MITRAL VALVE The mitral valve is normal in structure. Mitral regurgitation is trace. TRICUSPID VALVE The tricuspid valve is normal in structure. There is moderate tricuspid regurgitation. PULMONIC VALVE The pulmonic valve is not well visualized. GREAT VESSELS The aortic root is normal in size. PERICARDIAL EFFUSION There is no pericardial effusion. <Conclusion> The left ventricle is normal size. There is mild concentric left ventricular hypertrophy. The left ventricular function is normal. There is moderate tricuspid regurgitation.
[2016-07-21] MEDS ORDERED: Vancomycin 1gm in NS 250ml 1 GM/250 ML BAG IVPB STA (14:39)
--- NOTE | 2016-07-21 14:42 | CP.PCM.PN ---
Subjective - Date & Time of Evaluation Date of Evaluation: 07/21/16 Time of Evaluation: 12:45 - Subjective Subjective: Patient is complaining her right ear has some pain. Objective - Vital Signs/Intake and Output Vital Signs (last 24 hours): Temp Pulse Resp BP Pulse Ox 98.6 F 68 20 109/70 99 07/21/16 05:45 07/21/16 09:25 07/21/16 05:45 07/21/16 09:25 07/21/16 05:45 Intake and Output: 07/21/16 07/21/16 06:59 18:59 Intake Total 240 Output Total 1 Balance 239 - Medications Medications: Current Medications Aspirin (Ecotrin) 81 mg PO DAILY [facility] Last Admin: 07/21/16 09:25 Dose: 81 mg Azithromycin (Zithromax) 500 mg PO DAILY [facility] PRN Reason: Protocol Last Admin: 07/21/16 09:27 Dose: 500 mg Clopidogrel Bisulfate (Plavix) 75 mg PO DAILY [facility] Last Admin: 07/21/16 09:25 Dose: 75 mg Heparin Sodium (Porcine) (Heparin) 5,000 units SC Q8 [facility] PRN Reason: Protocol Last Admin: 07/21/16 05:23 Dose: 5,000 units Aztreonam (Azactam 1 Gm) 100 mls @ 100 mls/hr IVPB Q8 [facility] PRN Reason: Protocol Stop: 07/21/16 22:59 Metoprolol Tartrate (Lopressor) 25 mg PO BID [facility] Last Admin: 07/21/16 09:25 Dose: 25 mg Morphine Sulfate (Morphine) 1 mg IVP Q3 PRN PRN Reason: pain Last Admin: 07/21/16 09:25 Dose: 1 mg Ondansetron HCl (Zofran Inj) 4 mg IVP Q6H PRN PRN Reason: Nausea/Vomiting Last Admin: 07/20/16 00:58 Dose: 4 mg Pantoprazole Sodium (Protonix Ec Tab) 40 mg PO ACB [facility] Last Admin: 07/21/16 08:02 Dose: 40 mg - Labs Labs: 07/21/16 06:35 07/21/16 06:35 PT 10.7 Seconds (9.9-11.8) 07/20/16 05:15 INR 0.99 (0.93-1.08) 05/08/17 05:15 APTT 27.3 Seconds (23.7-30.8) 07/20/16 14:20 - Constitutional Appears: Non-toxic, No Acute Distress - Head Exam Head Exam: NORMAL INSPECTION - Respiratory Exam Respiratory Exam: Decreased Breath Sounds - Cardiovascular Exam Cardiovascular Exam: +S1, +S2 - GI/Abdominal Exam GI & Abdominal Exam: Soft. absent: Tenderness Assessment and Plan - Assessment and Plan (Free Text) Plan: Assessment systemic inflammatory response syndrome, consider secondary to acute ST elevation NV right ear pain, R/O otitis externa chronic back pain HTN dyslipidemia S/P cholecystectomy arthritis Plan Gave a dose of IV Vanco and started Aztreonam and will monitor clinical response Patient has also been started on Zithromax by PMD Will monitor clinically
--- NOTE | 2016-07-21 15:42 | CP.PCM.PN ---
Subjective - Date & Time of Evaluation Date of Evaluation: 07/21/16 Time of Evaluation: 15:38 - Subjective Subjective: RFV: Elevated LFTs S: No acute events. No chest pain or sob. No fever. No pruritis or jaundice. Feeling better overall. Objective - Vital Signs/Intake and Output Vital Signs (last 24 hours): Temp Pulse Resp BP Pulse Ox 98.6 F 68 20 109/70 99 07/21/16 05:45 07/21/16 09:25 07/21/16 05:45 07/21/16 09:25 07/21/16 05:45 Intake and Output: 07/21/16 07/21/16 06:59 18:59 Intake Total 240 720 Output Total 1 500 Balance 239 220 - Medications Medications: Current Medications Aspirin (Ecotrin) 81 mg PO DAILY [facility] Last Admin: 07/21/16 09:25 Dose: 81 mg Azithromycin (Zithromax) 500 mg PO DAILY [facility] PRN Reason: Protocol Last Admin: 07/21/16 09:27 Dose: 500 mg Clopidogrel Bisulfate (Plavix) 75 mg PO DAILY [facility] Last Admin: 07/21/16 09:25 Dose: 75 mg Heparin Sodium (Porcine) (Heparin) 5,000 units SC Q8 [facility] PRN Reason: Protocol Last Admin: 07/21/16 05:23 Dose: 5,000 units Aztreonam (Azactam 1 Gm) 100 mls @ 100 mls/hr IVPB Q8 [facility] PRN Reason: Protocol Stop: 07/21/16 22:59 Vancomycin HCl (Vancomycin 1gm) 1 gm in 250 mls @ 167 mls/hr IVPB STAT [facility] PRN Reason: Protocol Stop: 07/21/16 16:08 Metoprolol Tartrate (Lopressor) 25 mg PO BID [facility] Last Admin: 07/21/16 09:25 Dose: 25 mg Morphine Sulfate (Morphine) 1 mg IVP Q3 PRN PRN Reason: pain Last Admin: 07/21/16 09:25 Dose: 1 mg Ondansetron HCl (Zofran Inj) 4 mg IVP Q6H PRN PRN Reason: Nausea/Vomiting Last Admin: 07/20/16 00:58 Dose: 4 mg Pantoprazole Sodium (Protonix Ec Tab) 40 mg PO ACB [facility] Last Admin: 07/21/16 08:02 Dose: 40 mg - Labs Labs: 07/21/16 06:35 07/21/16 06:35 PT 10.7 Seconds (9.9-11.8) 07/20/16 05:15 INR 0.99 (0.93-1.08) 07/20/16 05:15 APTT 27.3 Seconds (23.7-30.8) 07/20/16 14:20 - Constitutional Appears: No Acute Distress - Head Exam Head Exam: ATRAUMATIC, NORMOCEPHALIC - Eye Exam Eye Exam: Normal appearance. absent: Scleral icterus - ENT Exam ENT Exam: Mucous Membranes Moist, Normal Oropharynx - Neck Exam Neck Exam: absent: Lymphadenopathy, Thyromegaly - Respiratory Exam Respiratory Exam: NORMAL BREATHING PATTERN. absent: Respiratory Distress - Cardiovascular Exam Cardiovascular Exam: +S1, +S2 - GI/Abdominal Exam GI & Abdominal Exam: Soft. absent: Distended, Tenderness - Neurological Exam Neurological Exam: Alert, Oriented x3 Assessment and Plan - Assessment and Plan (Free Text) Assessment: 55 year old female with h/o HTN, Arthritis, chronic back pain, Obesity admitted with Acute GA, s/p cardiac cath with QUENTIN placement, also noted to have elevated LFTs and microcytic anemia. 1. Elevated LFTs 2. Microcytic anemia Plan: - viral serologies negative - AMA negative, await rest of autoimmune serologies - US with some evidence of fatty infiltration - denies hh/o etoh abuse - check iron studies - recommend outpatient follow up for further evaluation of abnormal LFTs - recommend outpatient egd/colonoscopy for evaluation of possible iron deficiency anemia, when she is medically cleared / stable from cardiac standpoint - Diet as tolerated
[2016-07-21] MEDS: Aztreonam 1 Gm in NS 100mL 100 ML IVPB SCH ×2 (16:04→21:43)
[2016-07-22 00:47] VITALS: RESP 20
[2016-07-22 05:39] VITALS: TEMP 98.7
[2016-07-22 06:45] LABS: ADD MANUAL DIFF? NO
[2016-07-22 07:15] LABS: ALKALINE PHOSPHATASE 143 U/L (38-133); ALT/SGPT 122 U/L (7-56); AST/SGOT 89 U/L (15-39); BILIRUBIN,TOTAL 0.6 mg/dL (0.2-1.3); BLOOD UREA NITROGEN 15 mg/dL (7-21); CARBON DIOXIDE 26 mmol/L (21-33); CHLORIDE 106 mmol/L (98-107); GFR AFRICAN-AMERICAN > 60; GLUCOSE,RANDOM 92 mg/dL (70-110); PHOSPHOROUS 3.7 mg/dL (2.5-4.5); POTASSIUM 3.4 mmol/L (3.6-5.0); SODIUM 140 mmol/L (132-148); TOTAL PROTEIN 6.7 g/dL (5.8-8.3)
[2016-07-22 07:18] LABS: BASO # 0.02 K/mm3 (0.0-2.0); BASO % 0.2 % (0.0-3.0); EOS % 0.3 % (1.5-5.0); GRAN % 54.2 % (50.0-68.0); HEMATOCRIT 26.2 % (36.0-48.0); LYMPH # 4.1 (1.2-3.4); LYMPH % 39.6 % (22.0-35.0); MEAN CELL VOLUME 71.2 fL (80.0-105.0); MEAN CORPUSCULAR HEMOGLOBIN 22.3 pg (25.0-35.0); MEAN CORPUSCULAR HGB CONC 31.3 g/dl (31.0-37.0); MEAN PLATELET VOLUME 9.9 fl (7.0-11.0); MONO # 0.6 (0.1-0.6); MONO % 5.7 % (1.0-6.0); PLATELET COUNT 262 10^3/uL (120.0-450.0); RED CELL DISTRIBUTION WIDTH 18.9 % (11.5-14.5); WHITE BLOOD COUNT 10.3 10^3/ul (4.5-11.0)
[2016-07-22 07:26] LABS: IRON 17 ug/dL (45-180)
[2016-07-22] MEDS: Pantoprazole 40 mg EC Tab PO SCH (07:48)
[2016-07-22] MEDS ORDERED: Potassium Chloride 20 mEq ER Tab PO ONE (08:37)
--- NOTE | 2016-07-22 08:58 | PN ---
DATE: 07/22/2016 SUBJECTIVE: The patient is seen lying in bed on telemetry. She is currently comfortable. She denie s any chest pain. She is anxious to go home. CURRENT MEDICATIONS: Include Ecotrin, Plavix 75 mg daily, subcutaneous heparin, metoprolol 25 mg b.i .d., Protonix 40 mg daily, Zithromax. OBJECTIVE: GENERAL: She is an overweight middle-aged woman. VITAL SIGNS: Her blood pressure is 102/64 with a pulse of 70 in sinus, respirations are 16. She is afebrile. HEENT: No JVD. CHEST: A few scattered rhonchi. HEART: PMI normal position. No pathologic murmur or gallops noted. ABDOMEN: Soft, obese, nontender, normoactive bowel sounds. EXTREMITIES: No edema. Right groin is clean and dry with no evidence of hematoma. BLOOD WORK: Reveals potassium 3.4, BUN and creatinine are 15 and 1.0. Hemoglobin and hematocrit 8.2 and 26.2 with MCV of 71.2, white count is 10.3 and platelet count 262,000. IMPRESSION: 1. Status post inferior wall myocardial infarction with percutaneous coronary intervention of right coronary artery. 2. Mild left main disease. 3. Microcytic anemia. 4. Elevated transaminases. RECOMMENDATIONS: From a cardiac standpoint, the patient appears stable for discharge home today. Th e need for uninterrupted aspirin and Plavix therapy was reviewed with her. She was advised follow up with her leadite worker as well as a chief program officer in her home area in [place] upon return. Statin thera py has been withheld given her elevated transaminases and prior history of intolerance to statins. P otassium was replaced. Workup for her microcytic anemia is advised. Cardiac risk factor control was advised. Enrollment in cardiac rehabilitation program is recommended as well. Jesu Chan MD cc: [id number] TT: 07/22/2016 08:58:22 Confirmation # [id number] Dictation # [id number] mn
[2016-07-22 09:25] VITALS: BP 100/62; PULSE 80
--- NOTE | 2016-07-22 10:55 | DS ---
I thought we were going to discharge her yesterday afternoon but we could not get transportation, so she is discharged today; she is leaving at 10:00 a.m. She has her prescriptions. She is comfortable , doing well. The ear is feeling better. No chest pain, no shortness of breath. No abdominal pain. She is eating well. She is walking well. Good spirits. She has a copy of her chart to give to [facility] doctors in [place]. She also knows no smoking, no drinking, no salt, low-fat diet. PHYSICAL EXAMINATION: VITAL SIGNS: She has a 98.7 temp, 74 pulse, 103/64 blood pressure, 20 respiratory rate, 99% O2 sat o n room air. HEENT: Clear. Throat is moist. No more ear pain. HEART: Regular rate. LUNGS: Decreased breath sounds but clear. ABDOMEN: Soft, obese. EXTREMITIES: No edema. MEDICATIONS: She is on Ecotrin, Lopressor, Plavix, Protonix, Zithromax for 4 more days, and Zofran. She was here for high troponins, ST-elevation myocardial infarction, myocardial infarction, low potas sium, hypertension, anemia, urinary tract infection and otitis externa. Hopefully she will continue to do well. See her doctor in the next 24-48 hours down in [place], and continue to improve. Cameron Martines DO cc: [id number] TT: 07/22/2016 10:54:22 ct
[2016-07-22 14:22] LABS: SMOOTH MUSCLE AB TITER 1:40 Titer (< 1:20)
== END 2016-07-22 10:44 | disposition home or self-care (01) | DRG 853 ==
LOC: ED 08:06 → ERH 09:52 → CCU 11:01 → 2RSO 07-20 21:03
PROVIDERS: ADMIT Family Medicine; ATTEND Family Medicine
PROC: 027034Z Dilation of Coronary Artery, One Artery with Drug-eluting Intraluminal Device, Percutaneous Approach (ICD-10-PCS; principal; 2016-07-20)
PROC: 4A023N7 Measurement of Cardiac Sampling and Pressure, Left Heart, Percutaneous Approach (ICD-10-PCS; 2016-07-20)
PROC: B2111ZZ Fluoroscopy of Multiple Coronary Arteries using Low Osmolar Contrast (ICD-10-PCS; 2016-07-20)
PROC: B2151ZZ Fluoroscopy of Left Heart using Low Osmolar Contrast (ICD-10-PCS; 2016-07-20)
DX: I21.19 ST elevation (STEMI) myocardial infarction involving other coronary artery of inferior wall (principal); I23.7 Postinfarction angina; I10 Essential (primary) hypertension; N39.0 Urinary tract infection, site not specified; E66.9 Obesity, unspecified; E78.5 Hyperlipidemia, unspecified; G89.29 Other chronic pain; M54.9 Dorsalgia, unspecified; H60.90 Unspecified otitis externa, unspecified ear; D50.9 Iron deficiency anemia, unspecified; M19.90 Unspecified osteoarthritis, unspecified site; Z87.891 Personal history of nicotine dependence; Z88.0 Allergy status to penicillin; Z90.49 Acquired absence of other specified parts of digestive tract; Z82.49 Family history of ischemic heart disease and other diseases of the circulatory system; Z80.0 Family history of malignant neoplasm of digestive organs